=== PATIENT | male | born 1970 | race Caucasian/White ===

== ENCOUNTER → 2017-12-20 | Outpatient (CLI) | payer BC ==
[2015-11-30 21:30] VITALS: BP 148/86
[~2017-12-20] MED LIST: ACET500T68 PO; BUPR100T7 PO; GEMF600T3 PO; HYDR-2758 PO; IBUP400T18 PO; INSU100V31; INSU100V8 SQ; LISI10TA2 PO; METF-154 PO; SIMV20TA PO
--- NOTE | 2017-12-20 09:00 | RAD ---
ABDOMEN COMPLETE: 12/20/2017 8:12 AM Indication: 47 years old Male. Abdominal pain for weeks. Comparison: None. FINDINGS: Sonographic evaluation of the abdomen was performed utilizing grayscale, color Doppler. Liver: There is diffuse increased echogenicity of the hepatic parenchyma compatible with diffuse hepatocellular disease, most commonly due to steatosis. This decreases the sensitivity of ultrasound for the detection of focal hepatic lesions. Liver measures 19.0 cm, borderline enlarged. Biliary system: CBD measures 4 mm. There is no intrahepatic or extrahepatic biliary dilatation. Gallbladder: No stones, wall thickening or pericholecystic fluid. Sonographic Rudolph sign: Negative Pancreas: Nonvisualized. Spleen: 13.4 cm. Right kidney: 12.9 x 6.6 x 6.8 cm. No hydronephrosis. Normal echotexture without focal mass or renal calculus. Left kidney: 13.9 x 6.9 x 7.4 cm. No hydronephrosis. Normal echotexture without focal mass or renal calculus. Abdominal aorta and IVC: Proximal aorta is poorly visualized. Mid aorta measures 1.8 cm. Distal aorta is normal in caliber. IVC is patent. Free fluid:None. IMPRESSION: Diffuse increased echogenicity of the hepatic parenchyma suggestive of diffuse hepatocellular disease, most commonly due to hepatic steatosis. Mild hepatomegaly. No evidence for cholelithiasis. Electronically signed by: Dayanara Ching MD (12/20/2017 8:57 AM) [id number]
== END | disposition home or self-care (01) ==
LOC: US 07:50
PROVIDERS: ATTEND Family Medicine
DX: R16.0 Hepatomegaly, not elsewhere classified (principal); E11.9 Type 2 diabetes mellitus without complications; I10 Essential (primary) hypertension; E78.5 Hyperlipidemia, unspecified; E78.00 Pure hypercholesterolemia, unspecified; Z87.891 Personal history of nicotine dependence
CPT/HCPCS: 76700

== ENCOUNTER 2019-06-25 09:04 | Emergency (ER) | payer BC ==
[~2019-06-25] VITALS: Ht 188 cm; Wt 129.3 kg
[~2019-06-25 09:04] MED LIST changes: -GEMF600T3 PO; +GEMF600T8 PO; +HYDR-2155 PO; -HYDR-2758 PO
[2019-06-25] MEDS ORDERED: IV NORMAL SALINE 1,000ML 1,000 ML IV ONE (09:15)
[2019-06-25 09:33] LABS: BASO # 0.3 x10^3/uL (0.0-0.2); BASO % 4 % (0-3); EOS # 0.1 x10^3/uL (0.0-0.7); EOS % 1 % (0-3); HEMATOCRIT 42.5 % (39.0-53.0); HEMOGLOBIN 14.7 g/dL (13.0-17.5); LYMPH # 2.1 x10^3/uL (1.0-4.8); LYMPH % 27 % (24-48); MEAN CORPUSCULAR HEMOGLOBIN 30 pg (25-35); MEAN CORPUSCULAR HGB CONC 35 g/dL (31-37); MEAN CORPUSCULAR VOLUME 88 fL (79-100); MONO # 0.5 x10^3/uL (0.0-1.1); MONO % 7 % (0-9); NEUT # 4.8 x10^3uL (1.8-7.7); NEUT % 62 % (31-73); PLATELET COUNT 247 x10^3/uL (140-400); RED BLOOD COUNT 4.84 x10^6/uL (4.30-5.70); RED CELL DISTRIBUTION WIDTH 13.8 % (11.5-14.5); WHITE BLOOD COUNT 7.7 x10^3/uL (4.0-11.0)
--- NOTE | 2019-06-25 09:36 | RAD ---
CHEST PA LATERAL History: Right facial weakness Comparison: 1222 young Portable Chest X-ray Exam. Findings: Frontal and lateral views of the chest were obtained. Limited pulmonary inflation noted. The cardiomediastinal silhouette is normal. Pulmonary vasculature is normal. The lungs are clear. No pleural effusion or pneumothorax is seen. There is no acute bone abnormality. Dextroconvexity thoracic spine noted. IMPRESSION: No acute cardiopulmonary process. Electronically signed by: Petey Julian MD (06/25/2019 9:32 AM) [facility]
--- NOTE | 2019-06-25 09:44 | PHYS DOC ---
Past History Past Medical History: Diabetes, Hypertension, [place] Past Surgical History: Other Smoking: Cigarettes, Greater than 1 pack/day Alcohol Use: Heavy Drug Use: None Adult General Chief Complaint Chief Complaint: FACE PROBLEM HPI HPI 49-year-old male presents with right sided facial weakness. The patient started to notice this yesterday in the late morning. It is progressively gotten worse. He only started noticed because it was difficult to drink without liquid leaking out of his mouth. He denies any weakness in his extremities. He is able to speak normally. He is able to walk. He has no other obvious deficits. He does have a right sided occipital to parietal headache of moderate intensity. She denies fever or chills. He was feeling completely normal prior to this event. No history of strokes. He has no other complaints at this time. Review of Systems Review of Systems Constitutional: Denies fever or chills [] Eyes: Denies change in visual acuity, redness, or eye pain [] HENT: Denies nasal congestion or sore throat. Right facial weakness [] Respiratory: Denies cough or shortness of breath [] Cardiovascular: No additional information not addressed in HPI [] GI: Denies abdominal pain, nausea, vomiting, bloody stools or diarrhea [] : Denies dysuria or hematuria [] Musculoskeletal: Denies back pain or joint pain [] Integument: Denies rash or skin lesions [] Neurologic: Denies headache, focal weakness or sensory changes [] Endocrine: Denies polyuria or polydipsia [] All other systems were reviewed and found to be within normal limits, except as documented in this note. Current Medications Current Medications Current Medications Medications (Trade) Dose Ordered Sig/Douglas Start Time Stop Time Status Last Admin Dose Admin Sodium Chloride 1,000 ml @ 1,000 mls/hr 1X ONCE 06/25/19 09:15 06/25/19 10:14 Allergies Allergies Allergies Coded Allergies Type Severity Reaction Last Updated Verified No Known Drug Allergies 01/23/14 No Physical Exam Physical Exam Constitutional: Well developed, well nourished, no acute distress, non-toxic appearance. [] HENT: Normocephalic, atraumatic, bilateral external ears normal, oropharynx moist, no oral exudates, nose normal. [] Eyes: PERRLA, EOMI, conjunctiva normal, no discharge. [] Neck: Normal range of motion, no tenderness, supple, no stridor. [] Cardiovascular:Heart rate regular rhythm, no murmur [] Lungs & Thorax: Bilateral breath sounds clear to auscultation [] Abdomen: Bowel sounds normal, soft, no tenderness, no masses, no pulsatile masses. [] Skin: Warm, dry, no erythema, no rash. [] Back: No tenderness, no CVA tenderness. [] Extremities: No tenderness, no cyanosis, no clubbing, ROM intact, no edema. [] Neurologic: Right-sided upper and lower facial weakness. Alert and oriented X 3, normal motor function, normal sensory function, no other focal deficits noted. [] Psychologic: Affect normal, judgement normal, mood normal. [] Current Patient Data Lab Results Laboratory Tests Test 06/25/19 09:16 White Blood Count 7.7 x10^3/uL (4.0-11.0) Red Blood Count 4.84 x10^6/uL (4.30-5.70) Hemoglobin 14.7 g/dL (13.0-17.5) Hematocrit 42.5 % (39.0-53.0) Mean Corpuscular Volume 88 fL (79-100) Mean Corpuscular Hemoglobin 30 pg (25-35) Mean Corpuscular Hemoglobin Concent 35 g/dL (31-37) Red Cell Distribution Width 13.8 % (11.5-14.5) Platelet Count 247 x10^3/uL (140-400) Neutrophils (%) (Auto) 62 % (31-73) Lymphocytes (%) (Auto) 27 % (24-48) Monocytes (%) (Auto) 7 % (0-9) Eosinophils (%) (Auto) 1 % (0-3) Basophils (%) (Auto) 4 % (0-3) H Neutrophils # (Auto) 4.8 x10^3uL (1.8-7.7) Lymphocytes # (Auto) 2.1 x10^3/uL (1.0-4.8) Monocytes # (Auto) 0.5 x10^3/uL (0.0-1.1) Eosinophils # (Auto) 0.1 x10^3/uL (0.0-0.7) Basophils # (Auto) 0.3 x10^3/uL (0.0-0.2) H EKG EKG Sinus rhythm, rate 81, normal axis, no ST elevations or depressions.[] Radiology/Procedures Radiology/Procedures [] Impressions: CT HEAD WO CONTRAST Date: 06/25/2019 9:10 AM Clinical Indication: Slurred speech, right facial weakness Comparison: None. Technique: 5 mm axial tomographic images were obtained of the head without contrast. These were viewed on brain and bone windows. One or more of the following dose reduction techniques were utilized: Automated exposure control (AEC), Adjustment of mA and/or kV according to patient size, Use of iterative reconstruction technique such as ASiR, CT scan done according to ALARA and image gently/image wisely Findings: The brain parenchyma is normal in attenuation. No intra- or extra-axial mass or fluid collection. No acute hemorrhage. The ventricles are normal in size, shape, and morphology. The lopez-white matter junction is normal. The subarachnoid cisterns are patent. The visualized paranasal sinuses are normal. The visualized portions of the orbits and globes are normal. The mastoid air cells are clear. The lockstitch waistband setter topogram shows no lytic lesion or fracture. Impression: No acute intracranial process. Electronically signed by: Yesenia Mcwilliams MD (06/25/2019 9:46 AM) [place] [id number] DICTATED AND SIGNED BY: YESENIA MCWILLIAMS MD DATE: 06/25/19945 CC: MICHAELLE WHIPPLE DO; CLARK ARELALNO MD ~ CHEST PA LATERAL History: Right facial weakness Comparison: 1222 young Portable Chest X-ray Exam. Findings: Frontal and lateral views of the chest were obtained. Limited pulmonary inflation noted. The cardiomediastinal silhouette is normal. Pulmonary vasculature is normal. The lungs are clear. No pleural effusion or pneumothorax is seen. There is no acute bone abnormality. Dextroconvexity thoracic spine noted. IMPRESSION: No acute cardiopulmonary process. Electronically signed by: Petey Talley MD (06/25/2019 9:32 AM) [facility] DICTATED AND SIGNED BY: PETEY TALLEY MD DATE: 06/25/19931 CC: MICHAELLE WHIPPLE DO; CLARK ARELLANO MD ~ Course & Med Decision Making Course & Med Decision Making Pertinent Labs and Imaging studies reviewed. (See chart for details) The patient's head CT is negative for acute findings. His chest x-rays negative for acute findings. By exam, this appears to be Mendez's palsy. His labs are pending. The patient's blood sugars 418. We have given a liter normal saline and 10 units of regular insulin. The patient's labs are unremarkable except for his elevated blood sugar. He has improved to 318. The patient did not take his long-acting last night. He will adjust his dosing at home to compensate. He is feeling well except for the facial weakness. This continues to appear to be Mendez's palsy as I have no other focal findings. He'll follow-up with his primary care physician. At this time he is able to close his right eye checked him is important so that it does not get dried out when he sleeping. The patient and his significant other will monitor this closely. He is stable for discharge at this time. [] Dragon Disclaimer Dragon Disclaimer This electronic medical record was generated, in whole or in part, using a voice recognition dictation system. Departure Departure: Impression: Primary Impression: Mendez's palsy Additional Impression: Hyperglycemia due to type 2 diabetes mellitus Disposition: 01 HOME, SELF-CARE Condition: STABLE Referrals: CLARK ARELLANO MD (PCP) Patient Instructions: Mendez's Palsy, Hyperglycemia, [id number] Problem Qualifiers Additional Impression: Hyperglycemia due to type 2 diabetes mellitus Diabetes mellitus correction insulin use: with correction use Qualified Codes: E11.65 - Type 2 diabetes mellitus with hyperglycemia; Z79.4 - alf (current) use of insulin MICHAELLE WHIPPLE DO Jun 25, 2019 09:44
--- NOTE | 2019-06-25 09:49 | RAD ---
CT HEAD WO CONTRAST Date: 06/25/2019 9:10 AM Clinical Indication: Slurred speech, right facial weakness Comparison: None. Technique: 5 mm axial tomographic images were obtained of the head without contrast. These were viewed on brain and bone windows. One or more of the following dose reduction techniques were utilized: Automated exposure control (AEC), Adjustment of mA and/or kV according to patient size, Use of iterative reconstruction technique such as ASiR, CT scan done according to ALARA and image gently/image wisely Findings: The brain parenchyma is normal in attenuation. No intra- or extra-axial mass or fluid collection. No acute hemorrhage. The ventricles are normal in size, shape, and morphology. The lopez-white matter junction is normal. The subarachnoid cisterns are patent. The visualized paranasal sinuses are normal. The visualized portions of the orbits and globes are normal. The mastoid air cells are clear. The scouts topogram shows no lytic lesion or fracture. Impression: No acute intracranial process. Electronically signed by: Pawel Mcwilliams MD (06/25/2019 9:46 AM) [facility]
[2019-06-25 10:09] LABS: ALBUMIN 3.3 g/dL (3.4-5.0); ALBUMIN/GLOBULIN RATIO 0.9 (1.0-1.7); CALCIUM 8.3 mg/dL (8.5-10.1); GFR 79.4; POTASSIUM 4.1 mmol/L (3.5-5.1); TOTAL BILIRUBIN 0.5 mg/dL (0.2-1.0); TOTAL PROTEIN 6.8 g/dL (6.4-8.2)
[2019-06-25] MEDS ORDERED: INSULIN REGULAR 100 UNIT/ML 3ML VIAL. IV ONE (10:45)
[2019-06-25] MEDS ORDERED: diphenhydrAMINE 50 MG/ML VIAL IVP ONE (11:00)
[2019-06-25] MEDS ORDERED: KETOROLAC 30 MG/ML VIAL. IVP ONE (11:00)
[2019-06-25] MEDS ORDERED: METOCLOPRAMIDE HCL 10 MG/2 ML VIAL. IVP ONE (11:00)
[2019-06-25 11:14] VITALS: BP 152/91
--- NOTE | 2019-06-25 16:40 | EKG ---
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
== END 2019-06-25 14:05 | disposition home or self-care (01) ==
LOC: ER 09:04
DX: G51.0 Bell's palsy (principal); E11.65 Type 2 diabetes mellitus with hyperglycemia; I10 Essential (primary) hypertension; I25.2 Old myocardial infarction; F17.210 Nicotine dependence, cigarettes, uncomplicated; F10.20 Alcohol dependence, uncomplicated; Z79.4 Long term (current) use of insulin; Y90.9 Presence of alcohol in blood, level not specified
CPT/HCPCS: 36415; 70450; 71046; 80053; 82947; 84484; 85025; 93005; 96361; 96374; 96375; 99285; J1200; J1815; J1885; J2765; J7030

== ENCOUNTER 2019-07-24 09:38 | Observation (INO) | payer BC ==
[~2019-07-24] VITALS: Ht 188 cm; Wt 129.3 kg
[~2019-07-24 09:38] MED LIST changes: -INSU100V31; +INSU100V31 SQ
--- NOTE | 2019-07-24 10:05 | PHYS DOC ---
Past History Past Medical History: CAD, Diabetes, High Cholesterol, Hypertension, [place], Pancreatitis, Other Additional Past Medical Histor: rios's palsy Past Surgical History: Other Additional Past Surgical Histo: cardiac stents Smoking: Cigarettes, Greater than 1 pack/day Alcohol Use: Occasionally Drug Use: None Adult General Chief Complaint Chief Complaint: CHEST PAIN HPI HPI Patient is a 49-year-old male, with several cardiac risk factors, smoker, with a prior cardiac history with stents, who presents to the emergency department for evaluation. States that this morning he began experiencing some anterior chest discomfort, described as an achiness in the center of his chest. The pain does not radiate, and is not exacerbated by exertion, although he states he had some shortness of breath on walking up stairs earlier. He had some diaphoresis at the onset of pain but is no longer diaphoretic. He does not recall what his cardiac chest pain felt like. He has not had any fevers or chills, cough, nausea, or vomiting. There are no alleviating or exacerbating factors to his symptoms. Patient's HEART score is a 4, assuming his troponin is normal. Review of Systems Review of Systems Constitutional: Denies fever or chills [] Eyes: Denies change in visual acuity, redness, or eye pain [] HENT: Denies nasal congestion or sore throat [] Respiratory: Denies cough or current shortness of breath [] Cardiovascular: No additional information not addressed in HPI [] GI: Denies abdominal pain, nausea, vomiting, bloody stools or diarrhea [] : Denies dysuria or hematuria [] Musculoskeletal: Denies back pain or joint pain [] Integument: Denies rash or skin lesions [] Neurologic: Denies headache, focal weakness or sensory changes [] Endocrine: Denies polyuria or polydipsia [] All other systems were reviewed and found to be within normal limits, except as documented in this note. Allergies Allergies Allergies Coded Allergies Type Severity Reaction Last Updated Verified No Known Drug Allergies 01/23/14 No Physical Exam Physical Exam PHYSICAL EXAM: CONSTITUTIONAL: Well developed, well nourished HEAD: normocephalic, atraumatic EENT: PERRL, EOMI. Conjunctivae normal color, sclerae non-icteric; moist mucous membranes. NECK: Supple, non-tender; no meningismus. LUNGS: Lungs CTA, breathing even and unlabored. Normal air movement. HEART: Regular rate and rhythm, no murmur CHEST: No deformity; non-tender ABDOMEN: The abdomen is soft, and non-tender, no masses or bruits. EXTREM: Normal ROM; no deformity, no calf tenderness. Normal pulses palpable in all extremities. There is no pedal edema. SKIN: No rash; no diaphoresis NEURO: Alert; normal speech and cognition; CN's grossly intact; strength grossly intact without focal deficit. BACK: No CVA TTP. Current Patient Data Vital Signs Vital Signs Date Time Temp Pulse Resp B/P (MAP) Pulse Ox O2 Delivery O2 Flow Rate FiO2 07/24/19 09:44 97.9 83 20 98 Room Air Lab Results Laboratory Tests Test 07/24/19 10:10 White Blood Count 10.3 x10^3/uL Red Blood Count 4.75 x10^6/uL Hemoglobin 14.3 g/dL Hematocrit 41.4 % Mean Corpuscular Volume 87 fL Mean Corpuscular Hemoglobin 30 pg Mean Corpuscular Hemoglobin Concent 35 g/dL Red Cell Distribution Width 13.4 % Platelet Count 274 x10^3/uL Neutrophils (%) (Auto) 64 % Lymphocytes (%) (Auto) 29 % Monocytes (%) (Auto) 6 % Eosinophils (%) (Auto) 1 % Basophils (%) (Auto) 1 % Neutrophils # (Auto) 6.6 x10^3uL Lymphocytes # (Auto) 3.0 x10^3/uL Monocytes # (Auto) 0.6 x10^3/uL Eosinophils # (Auto) 0.1 x10^3/uL Basophils # (Auto) 0.1 x10^3/uL Sodium Level 131 mmol/L Potassium Level 4.3 mmol/L Chloride Level 96 mmol/L Carbon Dioxide Level 27 mmol/L Anion Gap 8 Blood Urea Nitrogen 12 mg/dL Creatinine 1.0 mg/dL Estimated GFR (Cockcroft-Gault) 79.4 BUN/Creatinine Ratio 12 Glucose Level 323 mg/dL Calcium Level 8.7 mg/dL Total Bilirubin 0.4 mg/dL Aspartate Amino Transf (AST/SGOT) Pending Alanine Aminotransferase (ALT/SGPT) 42 U/L Alkaline Phosphatase 106 U/L Troponin I Quantitative < 0.017 ng/mL SP-Oiv-B-Type Natriuretic Peptide 112 pg/mL Total Protein 7.2 g/dL Albumin 3.6 g/dL Albumin/Globulin Ratio 1.0 Lipase 241 U/L Current Medications Medications (Trade) Dose Ordered Sig/Douglas Route PRN Reason Start Time Stop Time Status Last Admin Dose Admin Aspirin (Children'S Aspirin) 324 mg 1X ONCE PO 07/24/19 10:15 07/24/19 10:16 DC 07/24/19 10:15 Morphine Sulfate (Morphine 4mg Syringe) 4 mg PRN Q15MIN PRN IV/SQ PAIN GREATER THAN 3/10 07/24/19 10:00 07/25/19 09:59 07/24/19 10:17 Nitroglycerin (Nitro-Bid Oint) 1 inch 1X ONCE TP 07/24/19 10:15 07/24/19 10:16 DC 07/24/19 10:15 EKG EKG []Normal sinus rhythm at a rate of 81 bpm, normal axis, normal intervals, evidence of prior inferior infarction is present without acute ischemic changes noted. Radiology/Procedures Radiology/Procedures PROCEDURE: PORTABLE CHEST 1V PORTABLE CHEST 1V INDICATION: Chest pain. COMPARISON STUDY: None. FINDINGS: Lungs: Low lung volume. No pulmonary mass or consolidation. The tracheobronchial tree and hilar structures are normal. Pleura: No pleural effusion or pneumothorax. Heart and Mediastinum: The cardiomediastinal silhouette is normal. The great vessels of the thorax are normal. IMPRESSION: Low lung volume. No consolidation. [] Course & Med Decision Making Course & Med Decision Making Pertinent Labs and Imaging studies reviewed. (See chart for details) []11:20 AM:The patient's condition remains stable. I spoke with the hospitalist, who accepted the patient to the hospital for further evaluation and treatment. Dragon Disclaimer Dragon Disclaimer This electronic medical record was generated, in whole or in part, using a voice recognition dictation system. Departure Departure: Impression: Primary Impression: Chest pain Additional Impressions: Coronary artery disease Diabetes Disposition: ADMITTED INPATIENT Admitting Physician: Gage Cuevas Condition: STABLE Referrals: CLARK ARELLANO MD (PCP) Problem Qualifiers HAYDEN CHEUNG MD Jul 24, 2019 10:05
[2019-07-24] MEDS ORDERED: ASPIRIN 81 MG TAB.CHEW PO ONE (10:15)
[2019-07-24] MEDS ORDERED: NITROGLYCERIN OINT 1 GM PACKET. TP ONE (10:15)
[2019-07-24] MEDS: MORPHINE SULFATE 4 MG/ML DISP.SYRIN. IV/SQ PRN ×4 (10:17→20:35)
[2019-07-24 10:23] LABS: BASO # 0.1 x10^3/uL (0.0-0.2); BASO % 1 % (0-3); EOS # 0.1 x10^3/uL (0.0-0.7); EOS % 1 % (0-3); HEMATOCRIT 41.4 % (39.0-53.0); HEMOGLOBIN 14.3 g/dL (13.0-17.5); LYMPH % 29 % (24-48); MEAN CORPUSCULAR HEMOGLOBIN 30 pg (25-35); MEAN CORPUSCULAR HGB CONC 35 g/dL (31-37); MEAN CORPUSCULAR VOLUME 87 fL (79-100); MONO # 0.6 x10^3/uL (0.0-1.1); MONO % 6 % (0-9); NEUT # 6.6 x10^3uL (1.8-7.7); NEUT % 64 % (31-73); PLATELET COUNT 274 x10^3/uL (140-400); RED BLOOD COUNT 4.75 x10^6/uL (4.30-5.70); RED CELL DISTRIBUTION WIDTH 13.4 % (11.5-14.5); WHITE BLOOD COUNT 10.3 x10^3/uL (4.0-11.0)
--- NOTE | 2019-07-24 10:35 | RAD ---
PORTABLE CHEST 1V INDICATION: Chest pain. COMPARISON STUDY: None. FINDINGS: Lungs: Low lung volume. No pulmonary mass or consolidation. The tracheobronchial tree and hilar structures are normal. Pleura: No pleural effusion or pneumothorax. Heart and Mediastinum: The cardiomediastinal silhouette is normal. The great vessels of the thorax are normal. IMPRESSION: Low lung volume. No consolidation. Electronically signed by: Pawel Mcwilliams MD (07/24/2019 10:32 AM) [facility]
[2019-07-24 10:43] LABS: ALBUMIN 3.6 g/dL (3.4-5.0); CALCIUM 8.7 mg/dL (8.5-10.1); GFR 79.4; POTASSIUM 4.3 mmol/L (3.5-5.1); TOTAL BILIRUBIN 0.4 mg/dL (0.2-1.0); TOTAL PROTEIN 7.2 g/dL (6.4-8.2)
[2019-07-24] MEDS ORDERED: INSULIN REGULAR 100 UNIT/ML 3ML VIAL. IV ONE (11:45)
[2019-07-24 12:36] VITALS: BP 139/87
[2019-07-24 15:02] VITALS: BP 135/73
--- NOTE | 2019-07-24 16:28 | HP ---
ADMIT DATE: 07/24/2019 HISTORY OF PRESENT ILLNESS: The patient is a 49-year-old male patient who came to the Emergency Room for evaluation. He stated this morning he began experiencing some anterior chest discomfort described as achiness in the center of his chest. The pain does not radiate. It is not exaggerated by exertion, although he states that he had some shortness of breath on walking upstairs earlier, had some diaphoresis with onset of chest pain, but no longer diaphoretic. He does not recall what his cardiac chest pain felt like. He has not had any fever, chills, cough, nausea, vomiting. He denied any nausea or vomiting. The patient has multiple cardiac risk factors and therefore the patient was evaluated. His first set of cardiac enzymes showed troponin to be less than 0.017 and his EKG showed that he was in normal sinus rhythm at a rate of 81 beats per minute, normal axis, normal intervals, evidence of prior inferior infarction is present without acute ischemic changes and therefore the patient was admitted to do 2 more sets of cardiac enzyme, to check his fasting lipid profile tomorrow and to consult the cardiology team. PAST MEDICAL HISTORY: Significant for coronary artery disease, status post myocardial infarction, status post PCI with stent deployment in [address] [facility]. He is known to have type 2 diabetes, hypertension, hyperlipidemia and generalized osteoarthritis. He is known also to have pancreatitis, Mendez's palsy. PAST SURGICAL HISTORY: Significant for PCI with stent deployment. ALLERGIES: He has no known drug allergies. MEDICATIONS: He is currently on following medications, although his is bringing the actual medications: He is on gemfibrozil 600 mg twice a day, simvastatin 40 mg at bedtime, lisinopril 10 mg once a day, hydrocodone/APAP 5/325 one tablet every 4 hours. He is on Tylenol 500 mg every 8 hours, Wellbutrin-SR 100 mg daily, metformin 1000 mg twice a day, NovoLog insulin before meals and Lantus 20 units at bedtime. FAMILY HISTORY: He has 1 brother and 4 sisters, all older, but does not keep in touch with him. His father at the age of 63 because of myocardial infarction. Mother at age of 80 because of lung cancer. SOCIAL HISTORY: He is , has 2 sons and 2 daughters. He smokes a pack a day. He does not drink alcohol or use any drugs. 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 REVIEW OF SYSTEMS: The patient denies any blurring of vision, cataract, glaucoma or macular degeneration. Denied any earache, tinnitus or sensorineural deafness. Denied any nosebleeds, stuffy nose or postnasal drip. Denied any sore throat, sore tongue, toothache, hoarseness of voice or difficulty swallowing. Denied any nausea, vomiting, diarrhea or constipation. Denied any hematemesis, melena or hematochezia. Denied any dysuria, frequency or hematuria. He did complain of this chest pain that is not related to exertion. Denied any cough, phlegm or hemoptysis. He felt dizzy, but denied any chills, rigors or fever. PHYSICAL EXAMINATION: GENERAL: On arrival to the Emergency Room, he looked well and was clearly in no apparent respiratory distress, pale, but there was no pallor, jaundice, cyanosis or thyromegaly. No jugular venous distention. No lower limb edema. VITAL SIGNS: Her heart rate was 83, blood pressure was 166/100, temperature was 97.9, respiratory rate 20 and oxygen saturation was 98% on room air. HEAD, EYES, EARS, NOSE AND THROAT: Showed normocephalic, atraumatic. NECK: Supple. HEART: Showed normal first and second heart sounds with no gallop, rub or murmur. CHEST: Clear to auscultation. No crepitation or rhonchi. ABDOMEN: Distended, soft, nontender. NEUROLOGIC: He was awake, alert, responding appropriately. All cranial nerves intact. EXTREMITIES: He moves extremities without difficulty. He ambulates without assistance or assistive devices. LABORATORY DATA: While in the Emergency Room, he has had an EKG done, which showed he was in normal sinus rhythm with a heart rate of 81 beats per minute. His chest x-ray showed no pulmonary mass or consolidation. The tracheobronchial tree and hilar structures are normal. No pleural effusion or pneumothorax. Heart and mediastinum showed that the cardiomediastinal silhouette is normal. The great vessels of the thorax are normal. His first set of cardiac enzymes showed troponin to be less than 0.017. ASSESSMENT AND PLAN: He has obviously hyperglycemia and dilutional hyponatremia. We will do 2 more sets of cardiac enzymes, check his fasting lipid profile tomorrow, consult the brush machine setter. PAMELA BOOKER MD DR: KEV/wallace JOB#: [id number] / [id number]
[2019-07-24] MEDS ORDERED: FENO160T PO (17:05)
[2019-07-24] MEDS ORDERED: ESCITALOPRAM OX20 MG PO (17:05)
[2019-07-24] MEDS ORDERED: EMPA1TAB PO (17:05)
[2019-07-24] MEDS ORDERED: TELM40TA PO (17:05)
[2019-07-24] MEDS ORDERED: ICOS1CAP PO (17:05)
[2019-07-24] MEDS ORDERED: CYCL-331 PO (17:05)
[2019-07-24] MEDS ORDERED: CARV25TA2 PO (17:05)
[2019-07-24] MEDS ORDERED: INSU100I32 SQ (17:05)
[2019-07-24 18:55] VITALS: BP 142/81
[2019-07-24] MEDS: CYCLOBENZAPRINE 10 MG TABLET. PO SCH (20:33)
[2019-07-24] MEDS: INSULIN GLARGINE SYRINGE. SQ SCH (20:50)
[2019-07-24] MEDS ORDERED: FLU VAX QS 2019-20 (36MOS+)/PF 0.5 ML SYRINGE. VAX IM ONE (21:00)
[2019-07-24] MEDS ORDERED: NON FORMULARY ITEM (Icosapent Ethyl (Vascepa) 2 CAP) PO SCH (21:00)
[2019-07-25 05:55] VITALS: BP 149/84
[2019-07-25 06:21] LABS: HEMATOCRIT 41.1 % (39.0-53.0); HEMOGLOBIN 13.9 g/dL (13.0-17.5); RED BLOOD COUNT 4.73 x10^6/uL (4.30-5.70); RED CELL DISTRIBUTION WIDTH 13.7 % (11.5-14.5); WHITE BLOOD COUNT 11.7 x10^3/uL (4.0-11.0)
[2019-07-25 06:59] LABS: CALCIUM 8.5 mg/dL (8.5-10.1); CREATININE 0.8 mg/dL (0.7-1.3); GFR 102.7
[2019-07-25 07:00] LABS: POTASSIUM 3.9 mmol/L (3.5-5.1)
--- NOTE | 2019-07-25 07:09 | EKG ---
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
[2019-07-25] MEDS: CARVEDILOL 12.5 MG TABLET PO SCH ×2 (08:06→17:03)
[2019-07-25] MEDS: CYCLOBENZAPRINE 10 MG TABLET. PO SCH ×2 (08:07→14:06)
[2019-07-25] MEDS: INSULIN LISPRO 300 UNITS/3 ML VIAL. SQ SCH ×3 (08:11→17:05)
--- NOTE | 2019-07-25 08:14 | PDOC2 ---
CARDIAC CONSULT DATE OF CONSULT Date Of Consult DATE: 07/25/19 TIME: 08:11 REASON FOR CONSULT Reason for Consult Chest pain REFERRING PHYSICIAN Referring Physician Dr. Cuevas SOURCE Source: Chart review, Patient HPI History of Present Illness This is a 49 yo male who presented secondary to chest pain. Patient reports pain began around 5 am yesterday when he was sitting up drinking coffee. Located in his central chest. Describes as stabbing in nature. Associated with upper back pain. No left arm or jaw pain. Seemed to improved with bending over. Pain persisted throughout the day. Started to develop a little shortness of breath and dizziness. No diaphoresis or palpitations. Due to h/o CAD and persistent pain, decided to come to the ED for further evaluation and treatment. Pain seemed to slowly improved throughout the evening. Resolved completely overnight. Does report some recent fatigued but contributes this to work and he often works 16 hours days 4-5 days per week with overtime. 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 Has a h/o CAD s/p PCI/stent placement in 2013 at [facility]. No longer follows with it generalist as he has been doing well. Last stress test 2-3 years ago. No recent echo. DM poorly controlled, but recently began seeing senior electronics engineer for diabetes management. PAST MEDICAL HISTORY Cardiovascular: CAD, HTN, hyperipidemia GI: Diverticulosis Hepatobiliary: Other (pancreatits ) Musculoskeletal: Osteoarthritis Endocrine: Diabetes PAST SURGICAL HISTORY Past Surgical History: Other (PCI/stent ) FAMILY HISTORY Family History: Coronary Artery Disease (father ), Hypertension SOCIAL HISTORY Smoke: 1 pack per day ALCOHOL: occassional Drugs: None Lives: with Family CURRENT MEDICATIONS Current Medications Current Medications Aspirin (Children'S Aspirin) 324 mg 1X ONCE PO Last administered on 07/24/19at 10:15; Start 07/24/19 at 10:15; Stop 07/24/19 at 10:16; Status DC Morphine Sulfate (Morphine 4mg Syringe) 4 mg PRN Q15MIN PRN IV/SQ PAIN GREATER THAN 3/10 Last administered on 07/24/19at 20:35; Start 07/24/19 at 10:00; Stop 07/25/19 at 09:59 Nitroglycerin (Nitro-Bid Oint) 1 inch 1X ONCE TP Last administered on 07/24/19at 10:15; Start 07/24/19 at 10:15; Stop 07/24/19 at 10:16; Status DC Insulin Human Regular (HumuLIN R VIAL) 5 unit 1X ONCE IV Last administered on 07/24/19at 12:00; Start 07/24/19 at 11:45; Stop 07/24/19 at 11:46; Status DC Influenza Virus Vaccine Quadrival (Afluria Quad 2019-20 (3yr Up) Syringe) 0.5 ml ONCE ONCE VAX IM Last administered on 07/24/19at 20:35; Start 07/24/19 at 21:00; Stop 07/24/19 at 21:01; Status DC Cyclobenzaprine HCl (Flexeril) 10 mg TID PO Last administered on 07/24/19at 20:33; Start 07/24/19 at 21:00 Carvedilol (Coreg) 25 mg BIDWMEALS PO ; Start 07/25/19 at 08:00 Non-Formulary Medication (Empagliflozin/ Linagliptin (Glyxambi 25 mg-5 mg Tablet)) 1 each DAILY PO ; Start 07/25/19 at 09:00; Status UNV Citalopram Hydrobromide (CeleXA) 40 mg DAILY PO ; Start 07/25/19 at 09:00 Fenofibrate (Tricor) 145 mg DAILY PO ; Start 07/25/19 at 09:00 Non-Formulary Medication (Icosapent Ethyl (Vascepa)) 2 cap BID PO ; Start 07/24/19 at 21:00; Status UNV Insulin Glargine (Lantus Syringe) 50 unit BID SQ Last administered on 07/24/19at 20:50; Start 07/24/19 at 21:00 Losartan Potassium (Cozaar) 100 mg DAILY PO ; Start 07/25/19 at 09:00 Insulin Human Lispro (HumaLOG) 20 units TIDWMEALS SQ ; Start 07/25/19 at 08:00 Active Scripts Active Reported Min Land U-100 (Insulin Glargine,Hum.rec.anlog) 100 Unit/1 Ml Insuln.pen 50 Unit SQ BID Glyxambi 25 mg-5 mg Tablet (Empagliflozin/Linagliptin) 1 Each Tablet 1 Each PO DAILY Micardis (Telmisartan) 40 Mg Tablet 2 Tab PO DAILY Cyclobenzaprine Hcl 10 Mg Tablet 1 Tab PO TID Fenofibrate 160 Mg Tablet 1 Tab PO DAILY Escitalopram Oxalate 20 Mg Tablet 1 Tab PO DAILY Carvedilol 25 Mg Tablet 25 Mg PO BIDWMEALS Vascepa (Icosapent Ethyl) 1 Gm Capsule 2 Cap PO BID Novolog (Insulin Aspart) 100 Unit/1 Ml Vial WRITTEN Rx take as previously directed for high blood sugar last dose: 05/05 with lunch next dose: if needed with supper ALLERGIES Allergies: Coded Allergies: No Known Drug Allergies (Unverified , 01/23/14) ROS Review of Systems 14 point ROS conducted with pertinent positives noted above in HPI. PHYSICAL EXAM General: Alert, Oriented X3, Cooperative, No acute distress HEENT: Atraumatic, Mucous membr. moist/pink Lungs: Clear to auscultation, Normal air movement Heart: Regular rate, Normal S1, Normal S2, No murmurs Abdomen: Soft, No hepatospenomegaly Extremities: No edema, Normal pulses Skin: No rashes, No breakdown Neuro: Normal speech, Strength at 5/5 X4 ext, Sensation intact Psych/Mental Status: Mental status NL, Mood NL MUSCULOSKELETAL: Osteoarthritic changes both hands VITALS Vital Signs Vital Signs Date Time Temp Pulse Resp B/P (MAP) Pulse Ox O2 Delivery O2 Flow Rate FiO2 07/25/19 05:55 97.6 80 18 149/84 (105) 96 Room Air LABS LABS Laboratory Tests Test 07/24/19 10:10 07/24/19 11:57 07/24/19 16:15 07/24/19 16:47 White Blood Count 10.3 x10^3/uL (4.0-11.0) Red Blood Count 4.75 x10^6/uL (4.30-5.70) Hemoglobin 14.3 g/dL (13.0-17.5) Hematocrit 41.4 % (39.0-53.0) Mean Corpuscular Volume 87 fL (79-100) Mean Corpuscular Hemoglobin 30 pg (25-35) Mean Corpuscular Hemoglobin Concent 35 g/dL (31-37) Red Cell Distribution Width 13.4 % (11.5-14.5) Platelet Count 274 x10^3/uL (140-400) Neutrophils (%) (Auto) 64 % (31-73) Lymphocytes (%) (Auto) 29 % (24-48) Monocytes (%) (Auto) 6 % (0-9) Eosinophils (%) (Auto) 1 % (0-3) Basophils (%) (Auto) 1 % (0-3) Neutrophils # (Auto) 6.6 x10^3uL (1.8-7.7) Lymphocytes # (Auto) 3.0 x10^3/uL (1.0-4.8) Monocytes # (Auto) 0.6 x10^3/uL (0.0-1.1) Eosinophils # (Auto) 0.1 x10^3/uL (0.0-0.7) Basophils # (Auto) 0.1 x10^3/uL (0.0-0.2) Sodium Level 131 mmol/L (136-145) Potassium Level 4.3 mmol/L (3.5-5.1) Chloride Level 96 mmol/L (98-107) Carbon Dioxide Level 27 mmol/L (21-32) Anion Gap 8 (6-14) Blood Urea Nitrogen 12 mg/dL (8-26) Creatinine 1.0 mg/dL (0.7-1.3) Estimated GFR (Cockcroft-Gault) 79.4 BUN/Creatinine Ratio 12 (6-20) Glucose Level 323 mg/dL (70-99) Calcium Level 8.7 mg/dL (8.5-10.1) Total Bilirubin 0.4 mg/dL (0.2-1.0) Aspartate Amino Transf (AST/SGOT) 20 U/L (15-37) Alanine Aminotransferase (ALT/SGPT) 42 U/L (16-63) Alkaline Phosphatase 106 U/L (46-116) Troponin I Quantitative < 0.017 ng/mL (0-0.055) < 0.017 ng/mL (0-0.055) XA-Etq-P-Type Natriuretic Peptide 112 pg/mL (0-124) Total Protein 7.2 g/dL (6.4-8.2) Albumin 3.6 g/dL (3.4-5.0) Albumin/Globulin Ratio 1.0 (1.0-1.7) Lipase 241 U/L (73-393) Glucose (Fingerstick) 271 mg/dL (70-99) 332 mg/dL (70-99) Test 07/24/19 18:55 07/24/19 20:32 07/25/19 05:58 Troponin I Quantitative < 0.017 ng/mL (0-0.055) Glucose (Fingerstick) 346 mg/dL (70-99) White Blood Count 11.7 x10^3/uL (4.0-11.0) Red Blood Count 4.73 x10^6/uL (4.30-5.70) Hemoglobin 13.9 g/dL (13.0-17.5) Hematocrit 41.1 % (39.0-53.0) Mean Corpuscular Volume 87 fL (79-100) Mean Corpuscular Hemoglobin 29 pg (25-35) Mean Corpuscular Hemoglobin Concent 34 g/dL (31-37) Red Cell Distribution Width 13.7 % (11.5-14.5) Platelet Count 250 x10^3/uL (140-400) Sodium Level 134 mmol/L (136-145) Potassium Level 3.9 mmol/L (3.5-5.1) Chloride Level 99 mmol/L (98-107) Carbon Dioxide Level 27 mmol/L (21-32) Anion Gap 8 (6-14) Blood Urea Nitrogen 12 mg/dL (8-26) Creatinine 0.8 mg/dL (0.7-1.3) Estimated GFR (Cockcroft-Gault) 102.7 Glucose Level 267 mg/dL (70-99) Calcium Level 8.5 mg/dL (8.5-10.1) ASSESSMENT/PLAN Assessment/Plan 1. Chest pain, mixed features. AMI ruled out. 2. CAD s/p PCI in 2013 at [facility]. No primary it generalist. Last stress test 2-3 years ago 3. Hypertension 4. Hyperlipidemia 5. Diabetes, II; uncontrolled. Recently began seeing senior electronics engineer for management 6. Tobaccoism; discussed/encouraged cessation Recommendations Echo to assess LV systolic function Lipids Home meds resumed. Add ASA, statin Secondary prevention Given risk factors, will need further ischemic workup; will arrange for outpatient MPI and f/u in our office with Dr. Go to establish care MIRTHA VALENZUELA APRN Jul 25, 2019 08:14
[2019-07-25] MEDS: INSULIN GLARGINE SYRINGE. SQ SCH (08:54)
[2019-07-25] MEDS ORDERED: CITALOPRAM 20 MG TABLET. PO SCH (09:00)
[2019-07-25] MEDS ORDERED: NON FORMULARY ITEM (Empagliflozin/Linagliptin (Glyxambi 25 mg-5 mg Tablet) 1 EACH) PO SCH (09:00)
[2019-07-25] MEDS ORDERED: FENOFIBRATE NANOCRYSTALLIZED 145 MG TABLET PO SCH (09:00)
[2019-07-25] MEDS ORDERED: LOSARTAN 50 MG TABLET. PO SCH (09:00)
[2019-07-25] MEDS ORDERED: ASPIRIN ENTERIC COATED 81 MG TABLET.DR. PO SCH (10:00)
[2019-07-25 10:57] VITALS: BP 157/91
[2019-07-25 14:30] VITALS: BP 156/83
[2019-07-25 15:19] LABS: TRIGLYCERIDES 1358 mg/dL (0-150); VLDLC 271 mg/dL (0-40)
[2019-07-25 17:03] VITALS: BP 156/83
[2019-07-25] MEDS ORDERED: ATORVASTATIN CALCIUM 20 MG TABLET PO SCH (21:00)
== END 2019-07-25 18:15 | disposition home or self-care (01) ==
LOC: ER 09:38 → 1 SOUTH 10:20 → ER 12:15
PROVIDERS: ADMIT Internal Medicine; ATTEND Internal Medicine
DX: E11.65 Type 2 diabetes mellitus with hyperglycemia (principal); E87.1 Hypo-osmolality and hyponatremia; I25.10 Atherosclerotic heart disease of native coronary artery without angina pectoris; I25.2 Old myocardial infarction; I10 Essential (primary) hypertension; E78.5 Hyperlipidemia, unspecified; M19.90 Unspecified osteoarthritis, unspecified site; F17.200 Nicotine dependence, unspecified, uncomplicated; Z95.1 Presence of aortocoronary bypass graft; Z23 Encounter for immunization
CPT/HCPCS: 36415; 71045; 80048; 80053; 80061; 82947; 83690; 83880; 84484; 85025; 85027; 90471; 90686; 93005; 96372; 96374; 96375; 96376; 99284; G0378; J1815; J2270; G0379

== ENCOUNTER 2019-12-23 14:11 | Emergency (ER) | payer BC ==
[~2019-12-23] VITALS: Ht 188 cm; Wt 127.0 kg
[~2019-12-23 14:11] MED LIST changes: +CARV25TA2 PO; +CYCL-331 PO; +EMPA1TAB PO; +ESCITALOPRAM OX20 MG PO; +FENO160T PO; +ICOS1CAP PO; +INSU100I32 SQ; +TELM40TA PO
[2019-12-23] MEDS ORDERED: CYCL-331 PO (14:44)
[2019-12-23] MEDS ORDERED: DICL50TA4 PO (14:44)
--- NOTE | 2019-12-23 14:44 | PHYS DOC ---
Past History Past Medical History: CAD, Diabetes, High Cholesterol, Hypertension, [place], Pancreatitis, Other Additional Past Medical Histor: rios's palsy Past Surgical History: Other Additional Past Surgical Histo: cardiac stents Smoking: Cigarettes, Greater than 1 pack/day Alcohol Use: Occasionally Drug Use: None General Adult EDM: Chief Complaint: BACK PAIN OR INJURY HPI: HPI: patient is a 49-year-old male who presents to the emergency department for evaluation.He states over the past week, he has had a few injuries to his back, he states about a week and a half ago he was helping move something heavy, when the handle he was holding gave way, causing him to fall to the ground. He states he tried lifting something heavy about a week ago and had further exacerbation of his right lower back pain. The pain radiates towards his right hip area, and down to his right foot. He has not had any incontinence, saddle anesthesia, numbness, or focal weakness. Movement, and flexion of his hip worsens his pain. There are no alleviating factors to his symptoms. He denies any abdominal pain. He has not had any hematuria or dysuria, or testicular pain. Review of Systems: Review of Systems: Constitutional: Denies fever or chills Eyes: Denies change in visual acuity HENT: Denies nasal congestion or sore throat Respiratory: Denies cough or shortness of breath Cardiovascular: Denies chest pain or edema GI: Denies abdominal pain, nausea, vomiting, bloody stools or diarrhea : Denies dysuria Musculoskeletal: Denies upper back pain or joint pain Integument: Denies rash Neurologic: Denies headache, focal weakness or sensory changes Endocrine: Denies polyuria or polydipsia Lymphatic: Denies swollen glands Psychiatric: Denies depression or anxiety Heart Score: Risk Factors: Risk Factors: DM, Current or recent (<one month) smoker, HTN, HLP, family history of CAD, obesity. Risk Scores: Score 0 - 3: 2.5% MACE over next 6 weeks - Discharge Home Score 4 - 6: 20.3% MACE over next 6 weeks - Admit for Clinical Observation Score 7 - 10: 72.7% MACE over next 6 weeks - Early Invasive Strategies Allergies: Allergies: Allergies Coded Allergies Type Severity Reaction Last Updated Verified No Known Drug Allergies 01/23/14 No Physical Exam: PE: PHYSICAL EXAM: CONSTITUTIONAL: Well developed, well nourished HEAD: normocephalic, atraumatic EENT: PERRL, EOMI. Conjunctivae normal color, sclerae non-icteric; moist mucous membranes. NECK: Supple, non-tender; no meningismus. LUNGS: Lungs CTA, breathing even and unlabored. Normal air movement. HEART: Regular rate and rhythm, no murmur CHEST: No deformity; non-tender ABDOMEN: The abdomen is soft, and non-tender, no masses or bruits. EXTREM: Normal ROM; no deformity, no calf tenderness. Normal pulses palpable in all extremities. There is no pedal edema. SKIN: No rash; no diaphoresis NEURO: Alert; normal speech and cognition; CN's grossly intact; strength grossly intact without focal deficit. There is no foot drop. There is no perineal anesthesia. Distal sensation is normal. BACK: No CVA TTP. There is no bony tenderness to palpation of the thoracic or lumbar spine. There is right lower paraspinal tenderness to palpation which reproduces the patient's pain. Straight leg raise is positive on the right. EKG: EKG: [] Radiology/Procedures: Radiology/Procedures: [] Course & Med Decision Making: Course & Med Decision Making Patient's baseline labs have been reviewed. He has normal renal function at baseline. Discussed importance of close follow-up discussed importance of close follow-up with the patient and return precautions in detail. Andrae Disclaimer: Andrae Disclaimer: This electronic medical record was generated, in whole or in part, using a voice recognition dictation system. Departure Departure: Impression: Primary Impression: Low back pain Disposition: HOME, SELF-CARE Condition: STABLE Referrals: CLARK ARELLANO MD (PCP) Patient Instructions: Back Pain, Adult, Sciatica Additional Instructions: Applying a heating pad to the affected area may help improve your symptoms. The prescribed medications may cause drowsiness-use caution while taking. Scripts Diclofenac Sodium (DICLOFENAC SODIUM) 50 Mg Tablet. 1 TAB PO BID for pain, #20 TAB 1 Refill Prov: HAYDEN CHEUNG MD 12/23/19 Cyclobenzaprine Hcl (CYCLOBENZAPRINE HCL) 10 Mg Tablet 1 TAB PO TID PRN for PAIN, #20 TAB Prov: HAYDEN CHEUNG MD 12/23/19 HAYDEN CHEUNG MD December 23, 2019 14:44
== END 2019-12-23 14:50 | disposition home or self-care (01) ==
LOC: ER 14:11
DX: M54.5 Low back pain (principal); I25.10 Atherosclerotic heart disease of native coronary artery without angina pectoris; E11.9 Type 2 diabetes mellitus without complications; E78.00 Pure hypercholesterolemia, unspecified; I10 Essential (primary) hypertension; I25.2 Old myocardial infarction; F17.210 Nicotine dependence, cigarettes, uncomplicated; G51.0 Bell's palsy
CPT/HCPCS: 99283

== ENCOUNTER 2020-06-28 08:33 | Emergency (ER) | payer BC ==
[~2020-06-28] VITALS: Ht 188 cm; Wt 127.0 kg
[~2020-06-28 08:33] MED LIST changes: +DICL50TA4 PO
[2020-06-28] MEDS ORDERED: ASPIRIN CHEWABLE 81 MG TABLET. PO ONE (08:45)
[2020-06-28] MEDS ORDERED: IV NORMAL SALINE 500ML 500 ML IV ONE (08:45)
--- NOTE | 2020-06-28 09:00 | PHYS DOC ---
Past History Past Medical History: CAD, Diabetes, High Cholesterol, Hypertension, [place], Pancreatitis, Other Additional Past Medical Histor: rios's palsy Past Surgical History: Other Additional Past Surgical Histo: cardiac stents Smoking: Cigarettes, Greater than 1 pack/day Alcohol Use: Rarely Drug Use: None General Adult EDM: Chief Complaint: CHEST PAIN HPI: HPI: Patient is a 50-year-old male coming in for substernal and epigastric pain. Patient states that this sensation is similar to both his prior [place] (5 years ago) and prior pancreatitis. Patient says his symptoms been going on since he woke up yesterday about 24 hours ago. States he is a type II diabetic but has been out of his medications for a week and is recently restarted them. Denies any nausea, vomiting, diarrhea, cough or fevers. He denies taking any blood thinners. Tobacco use, but denies any alcohol use or recent medication changes Review of Systems: Review of Systems: Constitutional: Denies fever or chills Eyes: Denies change in visual acuity HENT: Denies nasal congestion or sore throat Respiratory: Denies cough or shortness of breath Cardiovascular: Chest pain GI: Epigastric pain : Denies dysuria Musculoskeletal: Denies back pain or joint pain Integument: Denies rash Neurologic: Denies headache, focal weakness or sensory changes Endocrine: Denies polyuria or polydipsia Lymphatic: Denies swollen glands Psychiatric: Denies depression or anxiety Current Medications: Current Meds: Current Medications Medications (Trade) Dose Ordered Sig/Douglas Start Time Stop Time Status Last Admin Dose Admin Aspirin (Aspirin Chewable) 324 mg 1X ONCE 06/28/20 08:45 06/28/20 08:46 UNV Sodium Chloride 500 ml @ 0 mls/hr 1X ONCE 06/28/20 08:45 06/28/20 08:46 UNV Allergies: Allergies: Allergies Coded Allergies Type Severity Reaction Last Updated Verified hydromorphone Allergy Unknown 06/28/20 Yes morphine Allergy Unknown 06/28/20 Yes Physical Exam: PE: Constitutional: Well developed, well nourished, no acute distress, non-toxic appearance. [] HENT: Normocephalic, atraumatic, bilateral external ears normal, oropharynx moist, no oral exudates, nose normal. [] Eyes: PERRLA, EOMI, conjunctiva normal, no discharge. [] Neck: Normal range of motion, no tenderness, supple, no stridor. [] Cardiovascular:Heart rate regular rhythm, no murmur [] Lungs & Thorax: Bilateral breath sounds clear to auscultation [] Abdomen: Bowel sounds normal, soft, no tenderness, no masses, no pulsatile masses. [] Skin: Warm, dry, no erythema, no rash. [] Back: No tenderness, no CVA tenderness. [] Extremities: No tenderness, no cyanosis, no clubbing, ROM intact, no edema. [] Neurologic: Alert and oriented X 3, normal motor function, normal sensory function, no focal deficits noted. [] Psychologic: Affect normal, judgement normal, mood normal. [] Current Patient Data: Vital Signs: Vital Signs Date Time Temp Pulse Resp B/P (MAP) Pulse Ox O2 Delivery O2 Flow Rate FiO2 06/28/20 08:35 97.6 88 16 169/99 (122) 99 Room Air EKG: EKG: Sinus rhythm, left axis deviation, no ectopy, trace elevation in 2. Low voltage and less than 1 mm, no reciprocal depressions [] Radiology/Procedures: Radiology/Procedures: CHEST AP ONLY 06/28/2020 8:55 AM INDICATION: Chest pain COMPARISON: 07/24/2019 TECHNIQUE: Portable frontal view of the chest is provided. FINDINGS: The cardiomediastinal silhouette is within normal limits. Lungs are clear. There are no significant pleural effusions. There is no pulmonary vascular congestion. No pneumothorax. No suspicious osseous abnormality. IMPRESSION: There is no acute cardiopulmonary process. [] EXAM: CT Abdomen and Pelvis with IV contrast INDICATION: Reason: pancreatitis / Spl. Instructions: / History: TECHNIQUE: Multi-detector row CT images were acquired from the lung bases through the abdomen and pelvis with the use of IV contrast. Sagittal and coronal images were acquired from the transaxial data. All CT scans performed at this facility utilize dose optimization techniques as appropriate to the exam, including the following: Automated exposure control and adjustment of the mA and/or KV according to patient size (this includes techniques or standardized protocols for targeted exams where dose is indication/reason for exam). IV CONTRAST: Administered ORAL CONTRAST: Not administered COMPARISON: None FINDINGS: LOWER CHEST: Unremarkable LIVER: Hypodense 2.3 cm lesion in the inferior left hepatic lobe, best illustrated on image 25 of series 2 is favored to represent an area of focal fatty infiltration. Otherwise, liver is unremarkable. BILIARY SYSTEM: Gallbladder is unremarkable. Bile ducts are not dilated. PANCREAS: Peripancreatic soft tissue stranding is present around the head. No ductal dilation or solid masses identified. SPLEEN: Unremarkable ADRENALS: Unremarkable KIDNEYS & URETERS: Unremarkable BLADDER: Unremarkable REPRODUCTIVE ORGANS: Unremarkable GASTROINTESTINAL: Stomach and small bowel are unremarkable. There is extensive colonic diverticulosis most conspicuous in the sigmoid colon with mild wall thickening in the setting of under distention. No pericolonic soft tissue stranding is evident. The appendix is normal. MESENTERY/PERITONEUM/RETROPERITONEUM: Unremarkable VASCULAR: Scattered arterial calcifications. LYMPH NODES: No adenopathy OSSEOUS & SOFT TISSUES: Unremarkable IMPRESSION: 1. CT findings of mild acute pancreatitis involving the pancreatic head. No parenchymal necrosis, fluid collection or vascular complications identified. 2. Hypodense 2.3 cm lesion in the liver and hepatic segment 4 inferiorly is likely focal fatty infiltration. Consider an elective six-month follow-up liver mass protocol abdominal MRI or CT in follow-up. Heart Score: Risk Factors: Risk Factors: DM, Current or recent (<one month) smoker, HTN, HLP, family history of CAD, obesity. Risk Scores: Score 0 - 3: 2.5% MACE over next 6 weeks - Discharge Home Score 4 - 6: 20.3% MACE over next 6 weeks - Admit for Clinical Observation Score 7 - 10: 72.7% MACE over next 6 weeks - Early Invasive Strategies Course & Med Decision Making: Course & Med Decision Making Uncomplicated mild pancreatitis. Discussed with patient options of trial treatment at home versus inpatient admission. Due to Covid patient would like to try managing his symptoms at home with liquid diet and pain medication. Given strict return precautions and the patient he is welcome to return anytime if he is unable to tolerate symptoms at home. [] Dragon Disclaimer: Dragon Disclaimer: This electronic medical record was generated, in whole or in part, using a voice recognition dictation system. Departure Departure: Impression: Primary Impression: Recurrent pancreatitis Disposition: 01 DC HOME SELF CARE/HOMELESS Condition: STABLE Referrals: CLARK ARELLANO MD (PCP) Patient Instructions: Acute Pancreatitis Scripts Ondansetron Hcl (ZOFRAN) 4 Mg Tablet 1 TAB PO PRN Q6HRS PRN for NAUSEA, #6 TAB Prov: MINNA PUENTES MD 06/28/20 Hydrocodone Bit/Acetaminophen (HYDROCODONE-APAP 5-325 ) 1 Each Tablet 1 TAB PO PRN Q6HRS PRN for PAIN for 5 Days, #15 TAB 0 Refills Caution: this medication can make you drowsy. Do not drive or operate heavy machinery when using this medication. Prov: MINNA PUENTES MD 06/28/20 MINNA PUENTES MD Jun 28, 2020 09:00
[2020-06-28 09:03] LABS: BASO # 0.1 x10^3/uL (0.0-0.2); BASO % 1 % (0-3); EOS # 0.1 x10^3/uL (0.0-0.7); EOS % 1 % (0-3); HEMATOCRIT 46.2 % (39.0-53.0); LYMPH # 2.4 x10^3/uL (1.0-4.8); LYMPH % 18 % (24-48); MEAN CORPUSCULAR VOLUME 89 fL (79-100); MONO # 0.7 x10^3/uL (0.0-1.1); MONO % 6 % (0-9); NEUT # 9.8 x10^3uL (1.8-7.7); NEUT % 75 % (31-73); PLATELET COUNT 281 x10^3/uL (140-400); RED BLOOD COUNT 5.22 x10^6/uL (4.30-5.70); RED CELL DISTRIBUTION WIDTH 13.5 % (11.5-14.5); WHITE BLOOD COUNT 13.1 x10^3/uL (4.0-11.0)
--- NOTE | 2020-06-28 09:17 | RAD ---
CHEST AP ONLY 06/28/2020 8:55 AM INDICATION: Chest pain COMPARISON: 07/24/2019 TECHNIQUE: Portable frontal view of the chest is provided. FINDINGS: The cardiomediastinal silhouette is within normal limits. Lungs are clear. There are no significant pleural effusions. There is no pulmonary vascular congestion. No pneumothorax. No suspicious osseous abnormality. IMPRESSION: There is no acute cardiopulmonary process. Electronically signed by: Dayanara Ching MD (06/28/2020 9:14 AM) JAY
[2020-06-28 09:41] LABS: HEMOGLOBIN 15.4 g/dL (13.0-17.5)
[2020-06-28 09:42] LABS: MEAN CORPUSCULAR HEMOGLOBIN 30 pg (25-35); MEAN CORPUSCULAR HGB CONC 33 g/dL (31-37)
[2020-06-28 09:49] LABS: ANION GAP 17 (6-14); BLOOD UREA NITROGEN 16 mg/dL (8-26); CARBON DIOXIDE 20 mmol/L (21-32); CHLORIDE 92 mmol/L (98-107); POTASSIUM 4.3 mmol/L (3.5-5.1); SODIUM 129 mmol/L (136-145)
[2020-06-28 10:38] LABS: ALBUMIN 3.2 g/dL (3.4-5.0); ALBUMIN/GLOBULIN RATIO 0.7 (1.0-1.7); BUN/CREATININE RATIO 80 (6-20); CREATININE 0.2 mg/dL (0.7-1.3); GFR > 300.0; GLUCOSE 456 mg/dL (70-99); TOTAL BILIRUBIN 0.8 mg/dL (0.2-1.0); TOTAL PROTEIN 7.6 g/dL (6.4-8.2)
[2020-06-28 10:40] LABS: MAGNESIUM 1.6 mg/dL (1.8-2.4)
[2020-06-28] MEDS ORDERED: IV NORMAL SALINE 1,000ML 1,000 ML IV ONE (10:45)
[2020-06-28] MEDS ORDERED: IOHEXOL 300 MG/ML 75 ML VIAL. IV ONE (11:00)
[2020-06-28 11:05] LABS: ALK PHOS 140 U/L (46-116); ALT (SGPT) 25 U/L (16-63); AST (SGOT) 70 U/L (15-37)
[2020-06-28] MEDS ORDERED: IPRATRPIUM/ALBUTEROL 0.5/2.5MG 3 ML NEBU. ONE (11:18)
[2020-06-28 11:32] LABS: AMPHETAMINE/METHAMPHETAMINE NEG (NEG); BARBITURATES NEG (NEG); BENZODIAZEPINES NEG (NEG); CANNABINOIDS NEG (NEG); COCAINE NEG (NEG); METHADONE NEG (NEG); OPIATES NEG (NEG); PHENCYCLIDINE NEG (NEG)
[2020-06-28 11:39] LABS: CLARITY,URINE HAZY; COLOR,URINE YELLOW
[2020-06-28 11:40] LABS: BACTERIA,URINE 0 /HPF (0-FEW); BILIRUBIN,URINE NEG (NEG); GLUCOSE,URINE >=1000 mg/dL (NEG); GRANULAR CASTS,URINE OCC /HPF; HYALINE CASTS, URINE FEW /HPF; NITRITE,URINE NEG (NEG); SQUAMOUS EPITHELIAL CELL,UR OCC /LPF; UROBILINOGEN,URINE 0.2 mg/dL (0.2 mg/dL); WBC,URINE OCC /HPF (0-4)
--- NOTE | 2020-06-28 11:53 | RAD ---
EXAM: CT Abdomen and Pelvis with IV contrast INDICATION: Reason: pancreatitis / Spl. Instructions: / History: TECHNIQUE: Multi-detector row CT images were acquired from the lung bases through the abdomen and pelvis with the use of IV contrast. Sagittal and coronal images were acquired from the transaxial data. All CT scans performed at this facility utilize dose optimization techniques as appropriate to the exam, including the following: Automated exposure control and adjustment of the mA and/or KV according to patient size (this includes techniques or standardized protocols for targeted exams where dose is indication/reason for exam). IV CONTRAST: Administered ORAL CONTRAST: Not administered COMPARISON: None FINDINGS: LOWER CHEST: Unremarkable LIVER: Hypodense 2.3 cm lesion in the inferior left hepatic lobe, best illustrated on image 25 of series 2 is favored to represent an area of focal fatty infiltration. Otherwise, liver is unremarkable. BILIARY SYSTEM: Gallbladder is unremarkable. Bile ducts are not dilated. PANCREAS: Peripancreatic soft tissue stranding is present around the head. No ductal dilation or solid masses identified. SPLEEN: Unremarkable ADRENALS: Unremarkable KIDNEYS & URETERS: Unremarkable BLADDER: Unremarkable REPRODUCTIVE ORGANS: Unremarkable GASTROINTESTINAL: Stomach and small bowel are unremarkable. There is extensive colonic diverticulosis most conspicuous in the sigmoid colon with mild wall thickening in the setting of under distention. No pericolonic soft tissue stranding is evident. The appendix is normal. MESENTERY/PERITONEUM/RETROPERITONEUM: Unremarkable VASCULAR: Scattered arterial calcifications. LYMPH NODES: No adenopathy OSSEOUS & SOFT TISSUES: Unremarkable IMPRESSION: 1. CT findings of mild acute pancreatitis involving the pancreatic head. No parenchymal necrosis, fluid collection or vascular complications identified. 2. Hypodense 2.3 cm lesion in the liver and hepatic segment 4 inferiorly is likely focal fatty infiltration. Consider an elective six-month follow-up liver mass protocol abdominal MRI or CT in follow-up. Electronically signed by: Bret Eugene MD (06/28/2020 11:50 AM) [id number]
[2020-06-28] MEDS ORDERED: HYDR-2155 PO (12:17)
[2020-06-28] MEDS ORDERED: ONDA4TAB7 PO (12:17)
[2020-06-28] MEDS ORDERED: MORPHINE SULFATE 4 MG/ML DISP.SYRIN. IV ONE (12:30)
[2020-06-28 13:00] VITALS: BP 184/93
--- NOTE | 2020-06-28 14:03 | EKG ---
[address] [address] Test Date: 2020-06-28 Test Time: 08:38:18 Pat Name: JAKE ANN Department: Room: Gender: M [employer] Supervisor: YARON : 1970 Requested By: MINNA PUENTES Order Number: [id number] Reading MD: Measurements Intervals [place] Rate: 93 P: 25 NV: 150 QRS: -2 QRSD: 96 T: 26 QT: 350 QTc: 438 Interpretive Statements SINUS RHYTHM LEFTWARD AXIS QRS(T) CONTOUR ABNORMALITY CONSIDER INFERIOR INFARCT POSSIBLY ABNORMAL ECG RI6.02 No previous ECG available for comparison
[2020-06-28 16:49] LABS: TRIGLYCERIDES 7684 mg/dL (0-150); VLDLC 1536 mg/dL (0-40)
== END 2020-06-28 13:10 | disposition home or self-care (01) ==
LOC: ER 08:33
DX: K86.1 Other chronic pancreatitis (principal); R10.13 Epigastric pain; R20.2 Paresthesia of skin; R07.89 Other chest pain; I11.9 Hypertensive heart disease without heart failure; E11.9 Type 2 diabetes mellitus without complications; E78.00 Pure hypercholesterolemia, unspecified; I10 Essential (primary) hypertension; I25.2 Old myocardial infarction; F17.210 Nicotine dependence, cigarettes, uncomplicated; Z98.890 Other specified postprocedural states
CPT/HCPCS: 36415; 71045; 74177; 80053; 80061; 80307; 81001; 82803; 83690; 83735; 83880; 84484; 85025; 93005; 96361; 96374; 96376; 99285; J3010; J7030; J7040; Q9967

== ENCOUNTER 2021-04-06 11:20 | Inpatient (IN) | payer BC ==
[~2021-04-06] VITALS: Ht 188 cm; Wt 129.4 kg
[~2021-04-06 11:20] MED LIST changes: +GEMF-24 PO; -GEMF600T8 PO; +LISI10TA16 PO; -LISI10TA2 PO; +ONDA4TAB7 PO
--- NOTE | 2021-04-06 11:42 | PHYS DOC ---
Past History Past Medical History: CAD, Diabetes, High Cholesterol, Hypertension, OH, Pancreatitis, Other Additional Past Medical Histor: rios's palsy Past Surgical History: Other Additional Past Surgical Histo: cardiac stents Smoking: Cigarettes, Greater than 1 pack/day Alcohol Use: Rarely Drug Use: None Adult General Chief Complaint Chief Complaint: CHEST PAIN HPI HPI Patient is a 51-year-old male presenting for chest pain. Onset was 1 hour ago while walking at local supermarket. Reports chest pain was left of sternal border and deep, reports it was sharp 9/10 severity pain that often radiated to his left shoulder. Nothing known makes better or worse. Timing of symptoms were constant for approximately 45 minutes until transportation to our facility, patient does state since being here it is decreased to 4/10 severity but still present. Patient concerned as he has extensive past medical history most pertinent for OH with previous cardiac stent 6 years ago. He does have a history of pancreatitis but admits this pain is different, states this presentation was similar to his last when having a heart attack. Patient is a smoker, no alcohol or illicit drug use. He does admit he is on all appropriate medications such as aspirin, AYAKA inhibitor, beta-milton etc. he has been compliant with all medications. No recent changes in health, increased stressors, sick contacts or travel. He is not vaccinated against COVID-19 Review of Systems Review of Systems Fourteen body systems of review of systems have been reviewed. See HPI for pertinent positives and negative responses, other mcgrath all other systems are negative, non-pertinent or non-contributory Allergies Allergies Allergies Coded Allergies Type Severity Reaction Last Updated Verified hydromorphone Allergy Unknown 06/28/20 Yes morphine Allergy Unknown 06/28/20 Yes Physical Exam Physical Exam Constitutional: Well developed, well nourished, no acute distress, non-toxic appearance. HENT: Normocephalic, atraumatic, bilateral external ears normal, oropharynx moist, no oral exudates, nose normal. Eyes: PERRLA, EOMI, conjunctiva normal, no discharge. Neck: Normal range of motion, no tenderness, supple, no stridor. Cardiovascular: Heart rate regular, sinus rhythm, no murmurs rubs or gallops Lungs & Thorax: Bilateral breath sounds clear to auscultation Abdomen: Bowel sounds normal, soft and protuberant, no tenderness, no masses, no pulsatile masses. Nonsurgical abdomen, no peritoneal signs Skin: Warm, dry, no erythema, no rash. Back: No tenderness, no CVA tenderness. Extremities: No tenderness, no cyanosis, no clubbing, ROM intact, no edema. Neurologic: Alert and oriented X 3, grossly normal motor & sensory function, no focal deficits noted. Psychologic: Affect normal, judgement normal, mood normal. Current Patient Data Vital Signs Vital Signs Date Time Temp Pulse Resp B/P (MAP) Pulse Ox O2 Delivery O2 Flow Rate FiO2 04/06/21 11:40 98.9 85 22 161/101 98 Room Air Vital Signs Date Time Temp Pulse Resp B/P (MAP) Pulse Ox O2 Delivery O2 Flow Rate FiO2 04/06/21 13:11 82 140/89 04/06/21 12:31 14 97 Room Air 04/06/21 11:40 98.9 Lab Results Laboratory Tests Test 04/06/21 11:41 04/06/21 11:57 04/06/21 13:00 04/06/21 13:01 White Blood Count 9.9 x10^3/uL Red Blood Count 4.40 x10^6/uL Hemoglobin 13.1 g/dL Hematocrit 38.7 % Mean Corpuscular Volume 88 fL Mean Corpuscular Hemoglobin 30 pg Mean Corpuscular Hemoglobin Concent 34 g/dL Red Cell Distribution Width 13.8 % Platelet Count 257 x10^3/uL Neutrophils (%) (Auto) 59 % Lymphocytes (%) (Auto) 32 % Monocytes (%) (Auto) 7 % Eosinophils (%) (Auto) 1 % Basophils (%) (Auto) 2 % Neutrophils # (Auto) 5.8 x10^3uL Lymphocytes # (Auto) 3.2 x10^3/uL Monocytes # (Auto) 0.7 x10^3/uL Eosinophils # (Auto) 0.0 x10^3/uL Basophils # (Auto) 0.2 x10^3/uL Sodium Level 127 mmol/L Potassium Level 4.6 mmol/L Chloride Level 93 mmol/L Carbon Dioxide Level 26 mmol/L Anion Gap 8 Blood Urea Nitrogen 15 mg/dL Creatinine 0.9 mg/dL Estimated GFR (Cockcroft-Gault) 89.0 BUN/Creatinine Ratio 17 Glucose Level 515 mg/dL Calcium Level 8.0 mg/dL Total Bilirubin 0.5 mg/dL Aspartate Amino Transf (AST/SGOT) Pending Alanine Aminotransferase (ALT/SGPT) Pending Alkaline Phosphatase 159 U/L Troponin I Quantitative < 0.017 ng/mL Total Protein 6.6 g/dL Albumin 3.5 g/dL Albumin/Globulin Ratio 1.1 Lipase 226 U/L SARS-CoV-2 Antigen (Rapid) Negative Bedside Venous pH 7.48 Bedside Venous pCO2 41 mmHg Bedside Venous pO2 49 mmHg Venous Blood HCO3 30 mmol/L POC Venous O2 Saturation (Lori) 87 % Bedside FiO2 21 Acetone Level Neg Current Medications Medications (Trade) Dose Ordered Sig/Douglas Route PRN Reason Start Time Stop Time Status Last Admin Dose Admin Aspirin (Aspirin Chewable) 162 mg 1X ONCE PO 04/06/21 12:00 04/06/21 12:01 DC 04/06/21 11:51 Nitroglycerin (Nitrostat) 0.4 mg PRN Q5MIN PRN SL CP RATING > 1/10 04/06/21 11:45 04/07/21 11:44 04/06/21 13:11 Sodium Chloride 1,000 ml @ 1,000 mls/hr 1X ONCE IV 04/06/21 13:00 04/06/21 13:59 04/06/21 13:11 Acetaminophen (Tylenol) 650 mg PRN Q4HRS PRN PO FEVER > 100.3'F 04/06/21 13:30 04/07/21 13:29 Nitroglycerin (Nitrostat) 0.4 mg PRN Q5MIN PRN SL CHEST PAIN 04/06/21 13:30 04/07/21 13:29 EKG EKG EKG ordered and interpreted by myself 1129 hrs. as sinus rhythm at 83 bpm, unremarkable intervals, no axis deviation, Q waves present in inferior leads II, III, and aVF consistent with prior infarct, no STEMI Repeat EKG ordered and interpreted by myself at 1203 hrs. as sinus rhythm at 86 bpm, unremarkable intervals, no axis deviation, no acute ischemic findings, no STEMI Prior EKG used for comparison obtained 06/25/2019, there were Q waves in inferior leads II, III and aVF at that time, no other notable changes Radiology/Procedures Radiology/Procedures EXAM: Chest, single view. HISTORY: Chest pain. COMPARISON: None. FINDINGS: A frontal view of the chest obtained. There is no infiltrate, pleural effusion or pneumothorax. The heart is normal in size. IMPRESSION: No acute pulmonary finding. Electronically signed by: Janet Carver MD (04/06/2021 12:18 PM) [id number] Heart Score C/O Chest Pain: Yes HEART Score for Chest Pain: HEART Score for Chest Pain Response (Comments) Value History Highly Suspicious 2 ECG Nonspecific Repolarizatio 1 Age >45 - < 65 1 Risk Factors >3 Risk Factors or Hx CAD 2 Total 6 Risk Factors: Risk Factors: DM, Current or recent (<one month) smoker, HTN, HLP, family history of CAD, obesity. Risk Scores: Risk Factors: DM, Current or recent (<one month) smoker, HTN, HLP, family history of CAD, obesity. Course & Med Decision Making Course & Med Decision Making Vitals stable. HPI physical examination comprehensive ER work-up concerning for hyperglycemia and an uncontrolled type II diabetic and chest pain in a high risk individual Hospitalist contacted and case reviewed. No DKA but patient excepted for admission for glycemic control and chest pain rule out ACS I updated patient on proposed plan of care that included hospital admission and he was amenable. All questions and concerns addressed prior to admission Dragon Disclaimer Dragon Disclaimer This electronic medical record was generated, in whole or in part, using a voice recognition dictation system. Departure Departure: Impression: Primary Impression: Chest pain, rule out acute myocardial infarction Additional Impressions: Uncontrolled type 2 diabetes mellitus with hyperglycemia, with long-term current use of insulin History of coronary artery disease HTN (hypertension) Disposition: ADMITTED INPATIENT Admitting Physician: Kong Daly Condition: STABLE Referrals: JANET ARELLANO MD (PCP) Problem Qualifiers NIDIA WHITFIELD DO Apr 06, 2021 11:42
[2021-04-06] MEDS: NITROGLYCERIN SUBLINGUAL 0.4 MG BOTTLE OF 25. SL PRN ×3 (11:54→13:11)
[2021-04-06 11:55] LABS: BASO # 0.2 x10^3/uL (0.0-0.2); BASO % 2 % (0-3); EOS % 1 % (0-3); HEMATOCRIT 38.7 % (39.0-53.0); LYMPH # 3.2 x10^3/uL (1.0-4.8); LYMPH % 32 % (24-48); MEAN CORPUSCULAR VOLUME 88 fL (79-100); MONO # 0.7 x10^3/uL (0.0-1.1); MONO % 7 % (0-9); NEUT # 5.8 x10^3uL (1.8-7.7); NEUT % 59 % (31-73); PLATELET COUNT 257 x10^3/uL (140-400); RED CELL DISTRIBUTION WIDTH 13.8 % (11.5-14.5); WHITE BLOOD COUNT 9.9 x10^3/uL (4.0-11.0)
[2021-04-06] MEDS ORDERED: ASPIRIN CHEWABLE 81 MG TABLET. PO ONE (12:00)
--- NOTE | 2021-04-06 12:04 | EKG ---
[address] [address] Test Date: 2021-04-06 Test Time: 11:54:22 Pat Name: JAKE ANN Department: Room: Gender: M Lifter: YARON : 1970 Requested By: NIDIA WHITFIELD Order Number: [id number] Reading MD: Measurements Intervals [place] Rate: 86 P: 43 WI: 162 QRS: 5 QRSD: 94 T: 44 QT: 374 QTc: 451 Interpretive Statements SINUS RHYTHM QRS(T) CONTOUR ABNORMALITY CONSISTENT WITH INFERIOR INFARCT PROBABLY OLD ABNORMAL ECG RI6.02 Compared to ECG 04/06/2021 11:24:49 No significant changes
--- NOTE | 2021-04-06 12:05 | EKG ---
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
[2021-04-06 12:15] LABS: POTASSIUM 4.6 mmol/L (3.5-5.1)
--- NOTE | 2021-04-06 12:21 | RAD ---
EXAM: Chest, single view. HISTORY: Chest pain. COMPARISON: None. FINDINGS: A frontal view of the chest obtained. There is no infiltrate, pleural effusion or pneumotho rax. The heart is normal in size. IMPRESSION: No acute pulmonary finding. Electronically signed by: Janet Carver MD (04/06/2021 12:18 PM) [id number]
[2021-04-06 12:39] LABS: HEMOGLOBIN 13.1 g/dL (13.0-17.5); MEAN CORPUSCULAR HEMOGLOBIN 30 pg (25-35); MEAN CORPUSCULAR HGB CONC 34 g/dL (31-37)
[2021-04-06 12:44] LABS: ALBUMIN 3.5 g/dL (3.4-5.0); ALBUMIN/GLOBULIN RATIO 1.1 (1.0-1.7); CREATININE 0.9 mg/dL (0.7-1.3); TOTAL BILIRUBIN 0.5 mg/dL (0.2-1.0); TOTAL PROTEIN 6.6 g/dL (6.4-8.2)
[2021-04-06] MEDS ORDERED: IV NORMAL SALINE 1,000ML 1,000 ML IV ONE (13:00)
[2021-04-06] MEDS ORDERED: NITROGLYCERIN SUBLINGUAL 0.4 MG BOTTLE OF 25. SL PRN (13:30)
[2021-04-06] MEDS ORDERED: ACETAMINOPHEN 325 MG TABLET PO PRN (13:30)
--- NOTE | 2021-04-06 14:26 | HP ---
ADMIT DATE: 04/06/2021 ATTENDING PHYSICIAN: Dr. Daly CHIEF COMPLAINT: Chest pressure and weakness. HISTORY OF PRESENT ILLNESS: The patient is a 51-year-old gentleman who was admitted to the ED with chest pressure. He describes as vague symptoms of pain, nonexertional. No recent trauma. He took some nitroglycerin with some improvement. He does have a past history of coronary artery disease with previous cardiac catheterization and stent placement, this was in 2015. He is a smoker. He drinks quite a bit of caffeine. He is under a lot of stress. In the ED, as part of the workup, he is also found to have very poorly controlled diabetes with blood sugar greater than 500. First set of enzymes were negative. He is admitted for further treatment and evaluation and bring his sugars down. PAST MEDICAL HISTORY: Significant for chronic pancreatitis. He has type 2 diabetes, insulin-dependent. He is on 4 shots a day. Essential hypertension, hyperlipidemia and known coronary artery disease. ALLERGIES: HE HAS ALLERGIES TO HYDROMORPHONE AND MORPHINE. CURRENT MEDICATIONS: Include the following: He was scheduled to take Coreg 25 mg b.i.d., cyclobenzaprine p.r.n., diclofenac sodium, empagliflozin as well as linagliptin 25/5 daily, Lexapro 20 mg daily, hydrocodone p.r.n. Vascepa, insulin regular and Lantus, ondansetron and Micardis 40 mg 2 daily. SOCIAL HISTORY: He is a smoker. Drinking history, socially. FAMILY HISTORY: Father of heart disease at age 63. Mom of complication of lung cancer age 80. He is under a lot of stress at work. No recent COVID exposure. He has had his vaccines. REVIEW OF SYSTEMS: He has had polyuria and polydipsia. No weight loss. Appetite has been fair. All other systems reviewed and turned to be negative. PHYSICAL EXAMINATION: GENERAL: When I saw him, this is a pleasant gentleman in no acute distress. VITAL SIGNS: Showed a blood pressure of 134/94, pulse is 80 and regular. He was afebrile. HEENT: Head is without trauma. Pupils were ___. Sclerae nonicteric. Oropharynx clear. NECK: Supple, no bruits identified. LUNGS: Otherwise clear. CARDIOVASCULAR: Regular heart tones. No gallops. ABDOMEN: Soft. EXTREMITIES: Without edema. NEUROLOGIC: Function focally intact. PERTINENT LABORATORY STUDIES: Hemoglobin 13.1 g/dL, white count 9900. Nonfasting blood sugar 515 mg/dL. Sodium is concomitantly low at 127, potassium 4.6 mEq, creatinine 0.9 mg/dL. The first cardiac enzymes were negative for coronary ischemia. ASSESSMENT: 1. A 51-year-old gentleman with uncontrolled diabetes. 2. Chest pain, rule out coronary ischemia. 3. Known coronary artery disease. 4. Essential hypertension. 5. Family history of heart disease. 6. Tobacco addiction. PLAN: 1. Admit to the ICU for glucose stabilizer protocol. 2. Serial chemistries. 3. Serial cardiac enzymes. Should they be elevated, will entertain formal Cardiology consultation. KENDRA DR: Donald TID: [id number] CC: CLARK ARELLANO MD
[2021-04-06 17:46] VITALS: BP 145/75
--- NOTE | 2021-04-06 19:00 | NUR ---
Pt admitted to ICU bed 3 from ER via [facility], accompanied by EMS and nursing staff. Pt ambulated from gurney to bed independently, steady gait noted. Admission assessment completed. Pt here for c/o chest pain and elevated glucose of 515 (now down to 269). Pt currently denies CP but does c/o headache. Health history and home medications reviewed with pt. SCDs for VTE. Pt has not had any Covid vaccines. Pt lives at home with . Pt was given written information regarding hospital policies, unit procedures and contact persons. Valuables were checked and left at bedside. Pt given HS snack, ate independently. Awaiting PCR Covid result, rapid was negative. Pt hopeful for DC home tomorrow.
[2021-04-06 19:45] VITALS: BP 152/73
[2021-04-06] MEDS ORDERED: ATORVASTATIN CA80 MG PO (19:46)
[2021-04-06] MEDS ORDERED: ACET500T68 PO (19:46)
[2021-04-06] MEDS ORDERED: TEMA30CA6 PO (19:46)
[2021-04-06] MEDS ORDERED: ONDANSETRON ODT 4 MG TAB.RAPDIS PO PRN (20:15)
[2021-04-06] MEDS ORDERED: ATORVASTATIN CALCIUM 20 MG TABLET PO SCH (21:00)
[2021-04-06] MEDS ORDERED: TEMAZEPAM 15 MG CAPSULE PO SCH (21:00)
[2021-04-06] MEDS: INSULIN GLARGINE SYRINGE. SQ SCH (21:28)
[2021-04-06] MEDS: ACETAMINOPHEN 500 MG TABLET PO PRN (21:28)
[2021-04-06] MEDS: OMEGA-3 FATTY ACIDS/FISH OIL 1,000 MG CAPSULE. PO SCH (21:28)
[2021-04-06 22:25] VITALS: BP 157/84
[2021-04-07 02:00] VITALS: BP 140/91
[2021-04-07 04:44] LABS: BILIRUBIN,URINE NEG (NEG); CLARITY,URINE CLEAR; COLOR,URINE YELLOW; GLUCOSE,URINE >=1000 mg/dL (NEG); NITRITE,URINE NEG (NEG); UROBILINOGEN,URINE 0.2 mg/dL (0.2 mg/dL)
[2021-04-07 04:46] LABS: BACTERIA,URINE 0 /HPF (0-FEW); SQUAMOUS EPITHELIAL CELL,UR OCC /LPF; WBC,URINE RARE /HPF (0-4)
[2021-04-07 06:15] VITALS: BP 152/84
[2021-04-07 06:26] LABS: ALBUMIN/GLOBULIN RATIO 0.9 (1.0-1.7); CALCIUM 7.1 mg/dL (8.5-10.1); POTASSIUM 3.8 mmol/L (3.5-5.1); TOTAL BILIRUBIN 0.7 mg/dL (0.2-1.0); TOTAL PROTEIN 6.5 g/dL (6.4-8.2)
[2021-04-07] MEDS: OMEGA-3 FATTY ACIDS/FISH OIL 1,000 MG CAPSULE. PO SCH (07:39)
[2021-04-07] MEDS ORDERED: CARVEDILOL 12.5 MG TABLET PO SCH (08:00)
[2021-04-07] MEDS: INSULIN LISPRO 300 UNITS/3 ML VIAL. SQ SCH ×2 (08:04→12:21)
[2021-04-07] MEDS ORDERED: FENOFIBRATE NANOCRYSTALLIZED 145 MG TABLET PO SCH (09:00)
[2021-04-07] MEDS ORDERED: CITALOPRAM 20 MG TABLET. PO SCH (09:00)
[2021-04-07] MEDS ORDERED: LOSARTAN 50 MG TABLET. PO SCH (09:00)
[2021-04-07] MEDS: INSULIN GLARGINE SYRINGE. SQ SCH (09:01)
[2021-04-07 09:40] LABS: CREATININE 0.9 mg/dL (0.7-1.3)
[2021-04-07 11:12] VITALS: BP 149/80
[2021-04-07] MEDS ORDERED: HYDROcodone/APAP 5/325MG 1 TAB TABLET PO PRN (13:15)
[2021-04-07] MEDS ORDERED: CYCLOBENZAPRINE 10 MG TABLET. PO PRN (13:15)
[2021-04-07] MEDS ORDERED: CYCLOBENZAPRINE 10 MG TABLET. PO SCH (14:00)
--- NOTE | 2021-04-07 14:15 | DS ---
DATE OF DISCHARGE: 04/07/2021 HOSPITAL COURSE: The patient is a 51-year-old male patient who was admitted through the Emergency Room with chest pain 1 hour ago while walking at a local supermarket, reports chest pain was left sternal border and deep, it has been 9/10 in severity, pain that often radiates to his left shoulder. Nothing known makes it better or worse. Timing of symptoms were constant for approximately 45 minutes until transportation to our facility. Since being here it has decreased to 4/10 in severity but still present. The patient was concerned that he has extensive past medical history most prominent pertinent for myocardial infarction with previous cardiac stent 6 years ago. He does have a history of pancreatitis, but admits that the pain is different, stated that this presentation was similar to his last when having a heart attack. The patient is a smoker, but does not drink alcohol or illicit drugs. He does admit that he is on all appropriate medications such as aspirin, AYAKA inhibitor, beta blockers. He has been compliant with all medications, although his has a different story and she contacted nursing staff and stated that he is not compliant and does not follow his appointment with the 8th grade teacher and does not take his medications properly. He is not vaccinated against COVID-19. He apparently has had 4 sets of cardiac enzyme, all showed troponin to be less than 0.017. On initial evaluation also was found to be in DKA. His blood sugar was 515. His serum sodium was 124, although his anion gap was only 8 and was treated on his Lantus insulin as well as NovoLog, did receive 1 liter of normal saline initially. When I saw him today, he looked well and was clearly in no apparent respiratory distress. On questioning him, he denied any chest pain or shortness of breath. His chemistry showed that all his numbers have normalized. In fact, his serum sodium was 133, potassium 3.8, chloride 100, bicarbonate 28, anion gap of 5, BUN of 11, creatinine 0.9 and therefore, a decision was made to discharge him home to follow with his 8th grade teacher. PHYSICAL EXAMINATION: GENERAL: When I examined him this afternoon, he looked well and was clearly in no apparent respiratory distress. No pallor, jaundice, cyanosis, or thyromegaly. No jugular venous distention. No lower limb edema. VITAL SIGNS: His heart rate was 79, blood pressure 149/80, temperature was 96.8, respiratory rate was 18 and oxygen saturation was 96% on room air. HEAD, EYES, EARS, NOSE, AND THROAT: Normocephalic, atraumatic. NECK: Supple. HEART: Showed normal first and second heart sounds; no gallop, rub or murmur. CHEST: Clear to auscultation, no crepitation or rhonchi. ABDOMEN: Distended, soft, nontender. NEUROLOGIC: He was grossly intact. His intake over the last 24 hours was 920, output was 1400. LABORATORY DATA: As of yesterday, his white cell count was 9900, hemoglobin 13, hematocrit 39, MCV 88 and platelet count 257,000. His blood gases showed a pH of 7.48, pCO2 of 41, pO2 of 49, bicarbonate 30. His chemistry this morning showed a serum sodium 133, potassium 3.8, chloride 100, bicarbonate 28, anion gap of 5, BUN 11, creatinine 0.9. Estimated GFR was 89 mL per minute. His glucose was 189, calcium was 7.1 Total bilirubin, AST, ALT were normal. Alkaline phosphatase was slightly elevated. Total protein was 6.5, albumin 3. Urinalysis essentially unremarkable and toxic screen was negative for acetones. His coronavirus PCR was negative. DISCHARGE MEDICATIONS: He was discharged home to continue on Tylenol 1000 mg every 8 hours as needed, atorvastatin calcium 80 mg at bedtime, carvedilol 25 mg twice a day, cyclobenzaprine 10 mg once a day, diclofenac sodium 50 mg twice a day, Glyxambi 25/5 once a day, escitalopram oxalate 20 mg once a day, fenofibrate 160 mg daily, hydrocodone/APAP 5/325 one tablet every 6 hours, Vascepa 1 gram capsules 2 capsules twice a day, NovoLog insulin 15 units before meals, Lantus insulin 50 units twice a day, ondansetron 4 mg every 6 hours, telmisartan or Micardis 80 mg once a day, and temazepam or Restoril 30 mg at bedtime. FINAL DISCHARGE DIAGNOSES: 1. Chest pain, acute myocardial infarction ruled out. He has 3 sets of cardiac enzymes, all showed troponin to be less than 0.07. 2. Poorly controlled type 2 diabetes mellitus, much improved, coronary artery disease status post percutaneous coronary intervention with stent deployment, hypertension, tobacco addiction, hyperlipidemia. The patient was given a prescription for glucometer, glucose test strips and lancets and was advised to follow up with his 8th grade teacher. AMBROCIO DR: Abilio TID: [id number]
--- NOTE | 2021-04-07 14:43 | DS ---
DATE OF DISCHARGE: 04/07/2021 HOSPITAL COURSE: The patient is a 51-year-old male patient who was admitted through the Emergency Room with chest pain 1 hour ago while walking at a local supermarket, reports chest pain was left sternal border and deep, it has been 9/10 in severity, pain that often radiates to his left shoulder. Nothing known makes it better or worse. Timing of symptoms were constant for approximately 45 minutes until transportation to our facility. Since being here it has decreased to 4/10 in severity but still present. The patient was concerned that he has extensive past medical history most prominent pertinent for myocardial infarction with previous cardiac stent 6 years ago. He does have a history of pancreatitis, but admits that the pain is different, stated that this presentation was similar to his last when having a heart attack. The patient is a smoker, but does not drink alcohol or illicit drugs. He does admit that he is on all appropriate medications such as aspirin, AYAKA inhibitor, beta blockers. He has been compliant with all medications, although his has a different story and she contacted nursing staff and stated that he is not compliant and does not follow his appointment with the room service waiter/waitress and does not take his medications properly. He is not vaccinated against COVID-19. He apparently has had 4 sets of cardiac enzyme, all showed troponin to be less than 0.017. On initial evaluation also was found to be in DKA. His blood sugar was 515. His serum sodium was 124, although his anion gap was only 8 and was treated on his Lantus insulin as well as NovoLog, did receive 1 liter of normal saline initially. When I saw him today, he looked well and was clearly in no apparent respiratory distress. On questioning him, he denied any chest pain or shortness of breath. His chemistry showed that all his numbers have normalized. In fact, his serum sodium was 133, potassium 3.8, chloride 100, bicarbonate 28, anion gap of 5, BUN of 11, creatinine 0.9 and therefore, a decision was made to discharge him home to follow with his room service waiter/waitress. PHYSICAL EXAMINATION: GENERAL: When I examined him this afternoon, he looked well and was clearly in no apparent respiratory distress. No pallor, jaundice, cyanosis, or thyromegaly. No jugular venous distention. No lower limb edema. VITAL SIGNS: His heart rate was 79, blood pressure 149/80, temperature was 96.8, respiratory rate was 18 and oxygen saturation was 96% on room air. HEAD, EYES, EARS, NOSE, AND THROAT: Normocephalic, atraumatic. NECK: Supple. HEART: Showed normal first and second heart sounds; no gallop, rub or murmur. CHEST: Clear to auscultation, no crepitation or rhonchi. ABDOMEN: Distended, soft, nontender. NEUROLOGIC: He was grossly intact. His intake over the last 24 hours was 920, output was 1400. LABORATORY DATA: As of yesterday, his white cell count was 9900, hemoglobin 13, hematocrit 39, MCV 88 and platelet count 257,000. His blood gases showed a pH of 7.48, pCO2 of 41, pO2 of 49, bicarbonate 30. His chemistry this morning showed a serum sodium 133, potassium 3.8, chloride 100, bicarbonate 28, anion gap of 5, BUN 11, creatinine 0.9. Estimated GFR was 89 mL per minute. His glucose was 189, calcium was 7.1 Total bilirubin, AST, ALT were normal. Alkaline phosphatase was slightly elevated. Total protein was 6.5, albumin 3. Urinalysis essentially unremarkable and toxic screen was negative for acetones. His coronavirus PCR was negative. DISCHARGE MEDICATIONS: He was discharged home to continue on Tylenol 1000 mg every 8 hours as needed, atorvastatin calcium 80 mg at bedtime, carvedilol 25 mg twice a day, cyclobenzaprine 10 mg once a day, diclofenac sodium 50 mg twice a day, Glyxambi 25/5 once a day, escitalopram oxalate 20 mg once a day, fenofibrate 160 mg daily, hydrocodone/APAP 5/325 one tablet every 6 hours, Vascepa 1 gram capsules 2 capsules twice a day, NovoLog insulin 15 units before meals, Lantus insulin 50 units twice a day, ondansetron 4 mg every 6 hours, telmisartan or Micardis 80 mg once a day, and temazepam or Restoril 30 mg at bedtime. FINAL DISCHARGE DIAGNOSES: 1. Chest pain, acute myocardial infarction ruled out. He has 3 sets of cardiac enzymes, all showed troponin to be less than 0.07. 2. Poorly controlled type 2 diabetes mellitus, much improved, coronary artery disease status post percutaneous coronary intervention with stent deployment, hypertension, tobacco addiction, hyperlipidemia. The patient was given a prescription for glucometer, glucose test strips and lancets and was advised to follow up with his room service waiter/waitress. ADDENDUM The patient was admitted with chest pain. He has 4 sets of troponin, all of them were negative with the troponin to be less than 0.017. However, he is known to have coronary artery disease and has had myocardial infarction, status post PCI with stent deployment in 2014. Apparently, he has missed multiple appointments with Dr. Go and they spoke with Paula, the nurse practitioner and arrangement will be made for him to be seen for another stress test and echocardiogram as an outpatient. The office of the Cardiology team will call him for the appointment. AMBROCIO DR: Abilio TID: [id number]
[2021-04-07] MEDS: ACETAMINOPHEN 500 MG TABLET PO PRN (14:51)
--- NOTE | 2021-04-07 14:52 | NUR ---
pt discharged at approx 1450. pt ambulated to door with staff where was picking up. Educated the and the pt on follow up appt information as well as following up with a pcp and compliance with medications, finger sticks and diet. Pt given several handouts and resources on diabetes and medication prices and resources. Pt informed that cardiology will make anther follow up appt for out pt stress test as well as f/u with Dr. Go as pt has missed the last few appts. Pt given script for glucometer test strips and lancets. The pt states understanding at discharge.
[2021-04-07] MEDS ORDERED: DICLOFENAC SODIUM 25 MG TABLET.DR PO SCH (21:00)
[2021-04-08] MEDS ORDERED: LINAGLIPTIN 5 MG TABLET PO SCH (09:00)
[2021-04-08] MEDS ORDERED: EMPAGLIFLOZIN 25 MG TABLET. PO SCH (09:00)
== END 2021-04-07 15:00 | disposition home or self-care (01) | DRG 391 ==
LOC: ER 11:20 → ICU 13:16
PROVIDERS: ADMIT Hospitalist; ATTEND Hospitalist
DX: K21.9 Gastro-esophageal reflux disease without esophagitis (principal); E11.10 Type 2 diabetes mellitus with ketoacidosis without coma; E78.00 Pure hypercholesterolemia, unspecified; E78.5 Hyperlipidemia, unspecified; F17.200 Nicotine dependence, unspecified, uncomplicated; I10 Essential (primary) hypertension; E11.65 Type 2 diabetes mellitus with hyperglycemia; Z20.822 Contact with and (suspected) exposure to COVID-19; I25.10 Atherosclerotic heart disease of native coronary artery without angina pectoris; Z79.4 Long term (current) use of insulin; Z80.1 Family history of malignant neoplasm of trachea, bronchus and lung; Z82.49 Family history of ischemic heart disease and other diseases of the circulatory system; Z95.5 Presence of coronary angioplasty implant and graft; I25.2 Old myocardial infarction; Z88.5 Allergy status to narcotic agent
CPT/HCPCS: 36415; 71045; 80053; 81001; 82010; 82803; 82947; 83690; 84484; 85025; 87426; 93005; J1815; U0003; 99285-25; J7030

== ENCOUNTER 2021-11-09 18:03 | Emergency (ER) | payer BC ==
[~2021-11-09] VITALS: Ht 188 cm; Wt 138.0 kg
[~2021-11-09 18:03] MED LIST changes: +ATORVASTATIN CA80 MG PO; -CYCL-331 PO; +CYCL10TA19 PO; +TEMA30CA6 PO
[2021-11-09 18:25] VITALS: BP 170/87
--- NOTE | 2021-11-09 19:40 | PHYS DOC ---
Past History Past Medical History: CAD, Diabetes, High Cholesterol, Hypertension, [place], Pancreatitis, Other Additional Past Medical Histor: chronic Pancreatitis (RODNEY MOLINA APRN) Past Surgical History: Other Additional Past Surgical Histo: stent placed 2013 ago by Gustavo (RODNEY MOLINA APRN) Smoking: Cigarettes, Greater than 1 pack/day Alcohol Use: None Drug Use: None (RODNEY MOLINA APRN) General Adult EDM: Chief Complaint: LACERATION/AVULSION HPI: HPI: Patient is a 51-year-old male who presents to the emergency department for a laceration to the dorsal aspect of his right second finger after he fell urinating can approximately 1/2 hours prior to arrival. Patient denies any blood thinner use, decreased range of motion or decreased sensation in his finger. He is unsure of his last tetanus shot. Denies any pain but reports tingling to the finger. (RODNEY MOLINA APRN) Review of Systems: Review of Systems: Musculoskeletal: See HPI Integument: See HPI Neurologic: See HPI (RODNEY MOLINA APRN) Current Medications: Current Meds: Current Medications Medications (Trade) Dose Ordered Sig/Douglas Start Time Stop Time Status Last Admin Dose Admin Diphtheria/ Tetanus/Acell Pertussis (Boostrix) 0.5 ml ONCE ONCE 11/09/21 19:45 11/09/21 19:46 UNV Lidocaine HCl 20 ml 1X ONCE 11/09/21 19:45 11/09/21 19:46 UNV (RODNEY MOLINA APRN) Allergies: Allergies: Allergies Coded Allergies Type Severity Reaction Last Updated Verified hydromorphone Allergy Unknown 06/28/20 Yes morphine Allergy Unknown 06/28/20 Yes (RODNEY MOLINA APRN) Physical Exam: PE: Constitutional: Well developed, well nourished, no acute distress, non-toxic appearance. [] HENT: Normocephalic, atraumatic, bilateral external ears normal, oropharynx moist, no oral exudates, nose normal. [] Eyes: PERRL, EOMI, conjunctiva normal, no discharge. [] Neck: Normal range of motion, no stridor Cardiovascular: Normal peripheral perfusion Lungs & Thorax:, No tachypnea, normal work of breathing Abdomen: Soft and obese Skin: Warm, dry, no erythema, no rash. 2 cm laceration noted to the dorsal aspect of patient's right second finger, no foreign bodies, neuro intact, range of motion intact, no tendon involvement [] Back: Normal range of motion Extremities: No tenderness, no cyanosis, no clubbing, ROM intact, no edema. [] Neurologic: Alert and oriented X 3, normal motor function, normal sensory function, no focal deficits noted. [] Psychologic: Affect normal, judgement normal, mood normal. [] (RODNEY MOLINA APRN) Current Patient Data: Vital Signs: Vital Signs Date Time Temp Pulse Resp B/P (MAP) Pulse Ox O2 Delivery O2 Flow Rate FiO2 11/09/21 18:25 99.6 92 18 170/87 (114) 98 Room Air (RODNEY MOLINA APRN) EKG: EKG: [] (RODNEY MOLINA APRN) Radiology/Procedures: Radiology/Procedures: [] (RODNEY MOLINA APRN) Heart Score: C/O Chest Pain: N/A Risk Factors: Risk Factors: DM, Current or recent (<one month) smoker, HTN, HLP, family history of CAD, obesity. Risk Scores: Score 0 - 3: 2.5% MACE over next 6 weeks - Discharge Home Score 4 - 6: 20.3% MACE over next 6 weeks - Admit for Clinical Observation Score 7 - 10: 72.7% MACE over next 6 weeks - Early Invasive Strategies (RODNEY MOLINA APRN) Course & Med Decision Making: Course & Med Decision Making Pertinent Labs and Imaging studies reviewed. (See chart for details) [] Patient presents to the emergency department for a laceration to his right second finger. This was cleansed in the ER with saline. There is no foreign bodies or tendon involvement. This was repaired with sutures. Patient tolerated procedure. Patient educated on laceration repair and care and suture removal. I discussed with patient all findings and diagnostic testing as well as the need to follow-up with PCP for further evaluation and treatment or return to the ER if any new or worsening symptoms. Strict return precautions were also discussed at length. Patient voiced understanding and agreement with the plan. Patient is hemodynamically stable at the time of disposition. (RODNEY MOLINA APRN) Course & Med Decision Making Did not see or evaluate patient. Did not discuss patient with MORTGAGE PROCESSING CLERK. Generally agree with MORTGAGE PROCESSING CLERK's work-up and disposition per note (KYLE GARCIA MD) Andrae Disclaimer: Andrae Disclaimer: This electronic medical record was generated, in whole or in part, using a voice recognition dictation system. (RODNEY MOLINA APRN) Laceration Repair Lac Repair Time:2009 Confirmed: Patient, procedure, site, and site correct Consent: Patient has given verbal consent Laceration location: Dorsal aspect of the right index finger Shape: Horizontal linear Depth: With subcutaneous involvement Details: Clean with no foreign material Neurovascular, tendon exam: Intact Anesthesia: 1% lidocaine digital block Preparation: Sterile field established Irrigation: Wound irrigated with saline wound wash Skin closure: Simple interrupted sutures placed Size of suture: 6-0 Ethilon Number of sutures: 4 Complexity: Single layer Post procedure exam: Circulation, motor, sensory exam intact, bleeding controlled. Complications: None Patient tolerated: Well Performed by: self Total time: 15 minutes (RODNYE MOLINA APRN) Departure Departure: Impression: Primary Impression: Laceration Disposition: HOME / SELF CARE / HOMELESS Condition: GOOD Referrals: CLARK ARELLANO MD (PCP) Patient Instructions: Laceration Care, Adult Additional Instructions: You are seen in the emergency department today for a laceration which was repaired with sutures. Please keep area clean and dry. Wash with warm water mild soap. You can apply Polysporin or bacitracin ointment to the suture site and keep a dressing in place. You will need to have the sutures removed in 7 to 10 days. You can follow-up with your primary care provider or return to the emergency department to have these removed. Monitor for signs of infection which include redness, warmth, swelling or drainage. Return to the emergency department if you develop any of the signs of infection, decreased range of motion or decreased sensation in your finger. RODNEY MOLINA APRN Nov 09, 2021 19:40 KYLE GARCIA MD Nov 09, 2021 21:05
[2021-11-09] MEDS ORDERED: DIPHTH,PERTUSS(ACELL),TET TOX 0.5 ML DISP.SYRIN. VAX IM ONE ×2 (19:45→19:48)
[2021-11-09] MEDS ORDERED: LIDOCAINE 1% Multi-Dose 20 ML VIAL. IJ ONE (19:45)
[2021-11-09] MEDS ORDERED: LIDOCAINE 1% Multi-Dose 20 ML VIAL. ONE (19:48)
[2021-11-09] MEDS ORDERED: BACITRACIN ZINC TOPICAL OINT PACKET. TP ONE (21:00)
== END 2021-11-09 20:47 | disposition home or self-care (01) ==
LOC: ER 18:03
DX: S61.210A Laceration without foreign body of right index finger without damage to nail, initial encounter (principal); I25.10 Atherosclerotic heart disease of native coronary artery without angina pectoris; E11.9 Type 2 diabetes mellitus without complications; E78.00 Pure hypercholesterolemia, unspecified; I10 Essential (primary) hypertension; I25.2 Old myocardial infarction; F17.210 Nicotine dependence, cigarettes, uncomplicated; Z88.5 Allergy status to narcotic agent; W18.39XA Other fall on same level, initial encounter; Y93.89 Activity, other specified; Y92.89 Other specified places as the place of occurrence of the external cause; Y99.8 Other external cause status
CPT/HCPCS: 12001; 90471; 90715; 99283

== ENCOUNTER 2021-12-22 16:06 | Emergency (ER) | payer BC ==
[~2021-12-22] VITALS: Ht 188 cm; Wt 136.5 kg
[2021-12-22 16:20] VITALS: BP 164/85
--- NOTE | 2021-12-22 16:45 | PHYS DOC ---
Past History Past Medical History: CAD, Diabetes, High Cholesterol, Hypertension, [place], Pancreatitis, Other Additional Past Medical Histor: chronic Pancreatitis (RODNEY MOLINA APRN) Past Surgical History: Other Additional Past Surgical Histo: stent placed 2013 ago by Gustavo (RODNEY MOLINA APRN) Smoking: Cigarettes, Greater than 1 pack/day Alcohol Use: None Drug Use: None (RODNEY MOLINA APRN) General Adult EDM: Chief Complaint: FLANK PAIN HPI: HPI: Patient is a 51-year-old male who presents to the emergency department for left lower rib pain that occurred after falling 2 weeks ago. Patient denies any nausea vomiting, urinary symptoms, hematuria. He rates pain 8 out of 10 has been taking Tylenol at home. Patient states that it feels like the pain is deeper than his rib. (RODNEY MOLINA APRN) Review of Systems: Review of Systems: Cardiovascular: See HPI GI: See HPI : See HPI Musculoskeletal: See HPI Integument: Denies any wounds to his rib (RODNEY MOLINA APRN) Allergies: Allergies: Allergies Coded Allergies Type Severity Reaction Last Updated Verified hydromorphone Allergy Unknown 12/22/21 Yes morphine Allergy Unknown 12/22/21 Yes (RODNEY MOLINA APRN) Physical Exam: PE: Constitutional: Well developed, well nourished, no acute distress, non-toxic appearance. [] HENT: Normocephalic, atraumatic, bilateral external ears normal, oropharynx moist, no oral exudates, nose normal. [] Eyes: PERRL, EOMI, conjunctiva normal, no discharge. [] Neck: Normal range of motion, no tenderness, supple, no stridor. [] Cardiovascular:Heart rate regular rhythm, no murmur [] Lungs & Thorax: Bilateral breath sounds clear to auscultation no flail segments [] Abdomen: Bowel sounds normal, soft, no tenderness, no masses, obese, no abdominal guarding or rigidity, no pulsatile masses. [] Skin: Warm, dry, no erythema, no rash. [] Back: No tenderness, no CVA tenderness. [] Extremities: No tenderness, no cyanosis, no clubbing, ROM intact, no edema. [] Neurologic: Alert and oriented X 3, normal motor function, normal sensory function, no focal deficits noted. [] Psychologic: Affect normal, judgement normal, mood normal. [] (RODNEY MOLINA APRN) Current Patient Data: Labs: Laboratory Tests Test 12/22/21 17:00 Urine Collection Type Unknown Urine Color Yellow Urine Clarity Clear Urine pH 5.5 Urine Specific [place] 1.010 Urine Protein 100 mg/dl Urine Glucose (UA) >=1000 mg/dL Urine Ketones (Stick) Neg mg/dL Urine Blood Mod Urine Nitrite Neg Urine Bilirubin Neg Urine Urobilinogen Dipstick 0.2 mg/dL Urine Leukocyte Esterase Neg Urine RBC 3-5 /HPF Urine WBC Occ /HPF Urine Squamous Epithelial Cells None /LPF Urine Bacteria 0 /HPF (RODNEY MOLINA APRN) EKG: EKG: [] (RODNEY MOLINA APRN) Radiology/Procedures: Radiology/Procedures: []PROCEDURE: CT ABDOMEN PELVIS WO CONTRAST EXAM: CT Abdomen and Pelvis without IV contrast CLINICAL HISTORY: Left upper quadrant pain. COMPARISON: none TECHNIQUE: Helical CT of the abdomen and pelvis without intravenous contrast. Axial, coronal and sagittal reformatted images were generated. PQRS compliance statement - One or more of the following individualized dose reduction techniques were utilized for this study: 1. Automated exposure control 2. Adjustment of the mA and/or kV according to patient size 3. Use of iterative reconstruction technique FINDINGS: Lack of intravenous contrast limits evaluation of solid organs, vasculature, and lymph nodes. Lower chest: Motion artifact lung bases limits evaluation. Coronary calcifications are seen. Abdomen and Pelvis: Hepatic hypoattenuation, fatty liver. Focal low-attenuation along the gallbladder fossa, stable to 06/28/2020. Accounting for postcholecystectomy change, no biliary ductal dilatation. Spleen is mildly enlarged measuring 13.7 cm in length. Pancreas, adrenal glands and kidneys are unremarkable. No renal tract calculus. Mild bladder wall thickening likely cystitis. Appendix is normal. Moderate colonic stool content is seen. No small or large bowel dilatation. No bowel obstruction. Sigmoid colonic diverticula without evidence for acute diverticulitis. No abdominal or pelvic ascites. No abdominal or pelvic lymphadenopathy. Aorta is normal in caliber with atherosclerotic calcifications. Bones: No aggressive osseous lesion is seen. IMPRESSION: Hepatic hypoattenuation, fatty liver. Mild splenomegaly. No renal tract calculus. Mild bladder wall thickening can be seen with cystitis and can be correlated with urinalysis. Colonic diverticulosis without CT evidence for acute diverticulitis. Electronically signed by: Elvis Martínez MD (12/22/2021 5:22 PM) [facility] [place] DICTATED AND SIGNED BY: ELVIS MARTÍNEZ MD DATE: 12/22/21 171 CC: CLARK ARELLANO MD; RODNEY MOLINA APRN ~REASON: fall PROCEDURE: RIBS LEFT AND PA CHEST Left rib series to include a PA chest radiograph 12/22/2021 CLINICAL HISTORY: Fall with left rib injury. A PA digital radiograph of the chest was obtained. 2 AP and an oblique digital radiographs of the left ribs were obtained. Comparison study is dated 04/06/2021. The cardiac silhouette is normal in size. The thoracic aorta is mildly tortuous. No acute pulmonary infiltrate is seen. No pleural effusion or pneumothorax is noted. Very mild S-shaped curvature of the thoracolumbar spine is seen. Degenerative changes are seen involving the thoracic spine. The osseous structures are grossly intact. No left-sided rib fracture is seen. IMPRESSION: No left-sided rib fracture is seen. Electronically signed by: Gonsalo Steele MD (12/22/2021 5:42 PM) [id number] DICTATED AND SIGNED BY: GONSALO STEELE MD DATE: 12/22/21 173 CC: CLARK ARELLANO MD; RODNEY MOLINA APRN ~ (RODNEY MOLINA APRN) Heart Score: C/O Chest Pain: N/A Risk Factors: Risk Factors: DM, Current or recent (<one month) smoker, HTN, HLP, family history of CAD, obesity. Risk Scores: Score 0 - 3: 2.5% MACE over next 6 weeks - Discharge Home Score 4 - 6: 20.3% MACE over next 6 weeks - Admit for Clinical Observation Score 7 - 10: 72.7% MACE over next 6 weeks - Early Invasive Strategies (RODNEY MOLINA APRN) Course & Med Decision Making: Course & Med Decision Making Patient presents to the emergency department for left lower rib pain after falling. Imaging performed of patient's rib and chest. Patient reports that it feels like his pain is deeper than his ribs and therefore CT images abdomen and pelvis without contrast due to national shortage was performed. Patient CT abdomen and pelvis showed no acute findings other than diverticulosis without diverticulitis and bladder wall thickening. His urinalysis did not have any bacteria or leukocytes in it. Patient's chest x-ray did not show any acute rib fractures. Patient advised to take Tylenol and ibuprofen for pain. He was offered pain medication for home which he declined. I discussed with patient all findings and diagnostic testing as well as the need to follow-up with PCP for further evaluation and treatment or return to the ER if any new or worsening symptoms. Strict return precautions were also discussed at length. Patient voiced understanding and agreement with the plan. Patient is hemodynamically stable at the time of disposition. Pertinent Labs and Imaging studies reviewed. (See chart for details) [] (RODNEY MOLINA APRN) Dragon Disclaimer: Dragon Disclaimer: This electronic medical record was generated, in whole or in part, using a voice recognition dictation system. (RODNEY MOLINA APRN) Departure Departure: Impression: Primary Impression: Rib contusion Qualified Codes: S20.212A - Contusion of left front wall of thorax, initial encounter Disposition: HOME / SELF CARE / HOMELESS Condition: GOOD Referrals: CLARK ARELLANO MD (PCP) Patient Instructions: Fall Prevention and Home Safety, Rib Contusion Additional Instructions: You are seen in the emergency department for left rib pain. Imaging was performed of your ribs/chest and abdomen and pelvis which did not show any acute findings. Please see attached CT reports he can follow-up with your primary care provider regarding the incidental findings. Take Tylenol and ibuprofen for pain at home. You can also apply heat. Follow-up with your primary care provider tomorrow regarding your ER visit. Return to the emergency department if you develop worsening of your pain, shortness of breath, intractable nausea or vomiting, high fevers refractory to treatment, blood in your stools or vomit or any new or worsening concerns. Attending Signature Attending Signature I have participated in the care of this patient and I have reviewed and agree with all pertinent clinical information above including history, exam, and recommendations. (SHANE JOYNER MD) Attending Signature Attending Signature I have participated in the care of this patient and I have reviewed and agree with all pertinent clinical information above including history, exam, and recommendations. (SHANE JOYNER MD) Dragon Disclaimer This chart was dictated in whole or in part using Voice Recognition software in a busy, high-work load, and often noisy Emergency Department environment. It may contain unintended and wholly unrecognized errors or omissions. (SHANE JOYNER MD) RODNEY MOLINA PATENT LITIGATION ASSOCIATE December 22, 2021 16:45 SHANE JOYNER MD December 24, 2021 17:57
--- NOTE | 2021-12-22 17:24 | RAD ---
EXAM: CT Abdomen and Pelvis without IV contrast CLINICAL HISTORY: Left upper quadrant pain. COMPARISON: none TECHNIQUE: Helical CT of the abdomen and pelvis without intravenous contrast. Axial, coronal and sagi ttal reformatted images were generated. PQRS compliance statement - One or more of the following individualized dose reduction techniques wer e utilized for this study: 1. Automated exposure control 2. Adjustment of the mA and/or kV according to patient size 3. Use of iterative reconstruction technique FINDINGS: Lack of intravenous contrast limits evaluation of solid organs, vasculature, and lymph nodes. Lower chest: Motion artifact lung bases limits evaluation. Coronary calcifications are seen. Abdomen and Pelvis: Hepatic hypoattenuation, fatty liver. Focal low-attenuation along the gallbladder fossa, stable to . Accounting for postcholecystectomy change, no biliary ductal dilatation. Spleen is mildly e nlarged measuring 13.7 cm in length. Pancreas, adrenal glands and kidneys are unremarkable. No renal tract calculus. Mild bladder wall thickening likely cystitis. Appendix is normal. Moderate colonic stool content is seen. No small or large bowel dilatation. No jules wel obstruction. Sigmoid colonic diverticula without evidence for acute diverticulitis. No abdominal or pelvic ascites. No abdominal or pelvic lymphadenopathy. Aorta is normal in caliber wi th atherosclerotic calcifications. Bones: No aggressive osseous lesion is seen. IMPRESSION: Hepatic hypoattenuation, fatty liver. Mild splenomegaly. No renal tract calculus. Mild bladder wall thickening can be seen with cystitis and can be correlated with urinalysis. Colonic diverticulosis without CT evidence for acute diverticulitis. Electronically signed by: Elvis Reinoso MD (12/22/2021 5:22 PM) GREG
[2021-12-22 17:33] LABS: BACTERIA,URINE 0 /HPF (0-FEW); CLARITY,URINE CLEAR; COLOR,URINE YELLOW; GLUCOSE,URINE >=1000 mg/dL (NEG); NITRITE,URINE NEG (NEG); UROBILINOGEN,URINE 0.2 mg/dL (0.2 mg/dL); WBC,URINE OCC /HPF (0-4)
--- NOTE | 2021-12-22 17:45 | RAD ---
Left rib series to include a PA chest radiograph 12/22/2021 CLINICAL HISTORY: Fall with left rib injury. A PA digital radiograph of the chest was obtained. 2 AP and an oblique digital radiographs of the lef t ribs were obtained. Comparison study is dated 04/06/2021. The cardiac silhouette is normal in size. The thoracic aorta is mildly tortuous. No acute pulmonary infiltrate is seen. No pleural effusion or pneumothorax is noted. Very mild S-shaped curvature of the thoracolumbar spine is seen. Degenerative changes are seen involving the thoracic spine. The osseous structures are grossly intact. No left-jerardo ed rib fracture is seen. IMPRESSION: No left-sided rib fracture is seen. Electronically signed by: Gonsalo Steele MD (12/22/2021 5:42 PM) [id number]
== END 2021-12-22 18:20 | disposition home or self-care (01) ==
LOC: ER 16:06
DX: S20.212A Contusion of left front wall of thorax, initial encounter (principal); I25.10 Atherosclerotic heart disease of native coronary artery without angina pectoris; E11.9 Type 2 diabetes mellitus without complications; E78.00 Pure hypercholesterolemia, unspecified; I10 Essential (primary) hypertension; I25.2 Old myocardial infarction; F17.210 Nicotine dependence, cigarettes, uncomplicated; Z88.5 Allergy status to narcotic agent; W18.39XA Other fall on same level, initial encounter; Y93.89 Activity, other specified; Y92.89 Other specified places as the place of occurrence of the external cause; Y99.8 Other external cause status
CPT/HCPCS: 71101; 74176; 81001; 99285